=== PATIENT | female | born 1985 | race Caucasian/White ===

== ENCOUNTER 2017-02-14 22:57 | Outpatient (CLI) | payer MEDICAID ==
[2017-02-14 23:24] LABS: APPEARANCE,URINE SLIGHTLY-CLOUDY; BILIRUBIN,URINE NEGATIVE (NEGATIVE); GLUCOSE, URINE NEGATIVE (NEGATIVE); KETONES,URINE NEGATIVE (NEGATIVE); LEUKOCYTE ESTERASE,URINE NEGATIVE (NEGATIVE); NITRITE,URINE NEGATIVE (NEGATIVE); PROTEIN,URINE NEGATIVE (NEGATIVE); URINE SPECIFIC GRAVITY 1.016
[2017-02-14 23:38] LABS: URINE BARBITURATES SCREEN NEGATIVE; URINE METHADONE SCREEN NEGATIVE; URINE OPIATES LOW NEGATIVE; URINE PHENCYCLIDINE SCREEN NEGATIVE
== END 2017-02-15 00:20 | disposition home or self-care (01) ==
LOC: LC 22:57
PROVIDERS: ATTEND Obstetrics & Gynecology
DX: O99.89 Other specified diseases and conditions complicating pregnancy, childbirth and the puerperium (principal); R10.9 Unspecified abdominal pain
CPT/HCPCS: 80307; 81001

== ENCOUNTER 2017-04-01 11:51 | Outpatient (CLI) | payer MEDICAID | END 2017-04-01 12:35 | disposition home or self-care (01) | LOC: LC 11:51 | PROVIDERS: ATTEND Specialist | PROC: 4A1HXCZ Monitoring of Products of Conception, Cardiac Rate, External Approach (ICD-10-PCS; principal; 2017-04-01) | DX: Z34.83 Encounter for supervision of other normal pregnancy, third trimester (principal) | CPT/HCPCS: 59025 ==

== ENCOUNTER 2017-04-09 05:15 | Inpatient (IN) | payer MEDICAID ==
[2017-04-07 10:10] LABS: ABSOLUTE EOSINOPHILS # (AUTO) 0.1 10^3/uL (0.0-0.6); ABSOLUTE LYMPHOCYTES (AUTO) 1.1 10^3/uL (0.5-4.7); ABSOLUTE MONOCYTES (AUTO) 0.5 10^3/uL (0.1-1.4); ABSOLUTE NEUT (AUTO) 6.8 10^3/uL (1.7-8.2); BASOPHILS % (AUTO) 0.4 % (0-2); EOSINOPHILS % (AUTO) 0.8 % (0-6); HEMATOCRIT 38.2 % (36.0-47.0); HEMOGLOBIN 13.3 g/dL (12.0-15.5); HGB HCT DIFFERENCE 1.7; LYMPHOCYTES % (AUTO) 12.4 % (13-45); MEAN CORPUSCULAR HEMOGLOBIN 31.7 pg (27.0-33.4); MEAN CORPUSCULAR HGB CONC 34.9 g/dL (32.0-36.0); MEAN CORPUSCULAR VOLUME 91 fl (80-97); MONOCYTES % (AUTO) 6.1 % (3-13); RED CELL DISTRIBUTION WIDTH 14.5 % (11.5-14.0); SEGMENTED NEUTROPHILS % (AUTO) 80.3 % (42-78); WHITE BLOOD COUNT 8.5 10^3/uL (4.0-10.5)
[2017-04-07 10:11] LABS: APPEARANCE,URINE CLOUDY; BILIRUBIN,URINE NEGATIVE (NEGATIVE); CALCIUM OXALATE CRYSTALS,URINE TOO NUMEROUS TO CNT /HPF; GLUCOSE, URINE NEGATIVE (NEGATIVE); KETONES,URINE NEGATIVE (NEGATIVE); LEUKOCYTE ESTERASE,URINE NEGATIVE (NEGATIVE); NITRITE,URINE NEGATIVE (NEGATIVE); PROTEIN,URINE NEGATIVE (NEGATIVE); URINE SPECIFIC GRAVITY 1.018
[2017-04-07 10:37] LABS: URINE BARBITURATES SCREEN NEGATIVE; URINE METHADONE SCREEN NEGATIVE; URINE OPIATES LOW NEGATIVE; URINE PHENCYCLIDINE SCREEN NEGATIVE
[~2017-04-09 05:15] MED LIST: CEFAZOLIN 2 GM/D5W RTU 2 GM/50 ML RTUPB IV PRN; LACTATED RINGERS 1000 ML IV PRN; RINGERS SOLUTION,LACTATED 1,000 ML IV PRN
[2017-04-09] MEDS ORDERED: OXYTOCIN 10 UNIT/ML VIAL ONE (07:38)
[2017-04-09] MEDS ORDERED: LIDOCAINE 2% INJ-PF (20 MG/ML) 10 ML AMPUL ONE ×3 (07:38→08:13)
[2017-04-09] MEDS ORDERED: FENTANYL CITRATE INJ/PF 100 MCG/2 ML AMPUL ONE (07:39)
[2017-04-09] MEDS ORDERED: MIDAZOLAM 2 MG/2 ML INJ ONE (07:39)
[2017-04-09] MEDS ORDERED: EPHEDRINE SULFATE INJ 50 MG/1 ML AMPULE ONE (07:39)
[2017-04-09] MEDS ORDERED: ONDANSETRON HCL INJ/PF 4 MG/2 ML SDV ONE (07:39)
[2017-04-09] MEDS ORDERED: ACETAMINOPHEN 100 ML IV PRN (08:05)
[2017-04-09] MEDS ORDERED: SIMETHICONE 80 MG TAB.CHEW PO PRN (08:05)
[2017-04-09] MEDS ORDERED: RINGERS SOLUTION,LACTATED 1,000 ML IV PRN (08:05)
[2017-04-09] MEDS ORDERED: ACETAMINOPHEN 325 MG TABLET PO PRN (08:05)
[2017-04-09] MEDS ORDERED: HYDROMORPHONE HCL INJ/PF 2 MG/ML AMPULE IV PRN (08:05)
[2017-04-09] MEDS ORDERED: PROMETHAZINE HCL INJ 25 MG/1 ML VIAL IV PRN ×3 (08:05→08:53)
[2017-04-09] MEDS ORDERED: MEASLES,MUMPS&RUBELLA VACC/PF 0.5 ML VIAL SUBCUT PRN ×2 (08:05→13:00)
[2017-04-09] MEDS ORDERED: OXYTOCIN/NORMAL SALINE 20 UNIT/1,000 ML RTUINJ IV PRN (08:05)
[2017-04-09] MEDS ORDERED: DIPH/PERTUSS(ACELL)/TETANUS VAC/PF 0.5 ML SYR (>=10YO) IM PRN ×2 (08:05→13:00)
[2017-04-09] MEDS ORDERED: OXYCODONE-ACETAMINOPHEN 5-325 MG TABLET PO PRN ×2 (08:05)
[2017-04-09] MEDS ORDERED: FENTANYL CITRATE INJ/PF 100 MCG/2 ML AMPUL IV PRN ×3 (08:53)
[2017-04-09] MEDS ORDERED: MEPERIDINE HCL/PF INJ 25 MG/1 ML DISP.SYRIN IV PRN (08:53)
[2017-04-09] MEDS ORDERED: MORPHINE SULFATE 10 MG/ML INJ IV PRN (08:53)
[2017-04-09] MEDS ORDERED: DIPHENHYDRAMINE HCL 50 MG/ML VIAL IV PRN (08:53)
--- NOTE | 2017-04-09 09:02 | Non Stress Test Report ---
Non Stress Test Datetime Report Generated by CPN: 04/09/2017 09:02 DEMOGRAPHIC EGA NST: 38.2 INDICATION Indication for Study: Ordered by Provider MONITORING Monitor Explained: Monitor Explained; Test Explained; Patient Verbalized Understanding Time on Monitor: 04/01/2017 12:08 Time off Monitor: 04/01/2017 12:28 NST Duration: 20 NST INTERVENTIONS NST Interventions: None Physician Notified NST: Dr. Neilsen BABY A: [id number] BABY A Movement : Present Contraction Frequency : none FHR Baseline : 125 Accelerations : 15X15 Decelerations : None Variability : Moderate 6-25bpm NST Review: Meets Criteria for Reactive NST NST Review and Verified By : Pee Brumfield RN NST Results: Reactive NST REPORT Report Trigger: Send Report
[2017-04-09] MEDS ORDERED: MORPHINE SULFATE 10 MG/ML INJ ONE (09:19)
--- NOTE | 2017-04-09 09:22 | Operative Report ---
Operative Report DATE OF SURGERY: 04/09/17 PREOPERATIVE DIAGNOSIS: Desires repeat to prevent risk from uterine rupture POSTOPERATIVE DIAGNOSIS: Same OPERATION: Repeat via low transverse uterine incision SURGEON: SHIV KRISHNA ANESTHESIA: Epidural TISSUE REMOVED OR ALTERED: Placenta COMPLICATIONS: None ESTIMATED BLOOD LOSS: 250 INTRAOPERATIVE FINDINGS: Viable female Apgars 9 9 PROCEDURE: Patient was taken to the OR and placed in supine position after her spinal anesthesia. She is prepared and draped in sterile fashion. La was placed for drainage of the bladder. Low transverse incision was made and carried down the level of the fascia. The fascial incision was made with knife and extended bilaterally with curved Clayton scissors. The fascia was off the rectus muscles using sharp and blunt dissection. The rectus muscles are in the midline. The peritoneum was entered without incident. Bladder blade was placed in uterine segment was identified. A low transverse incision was made creating a bladder flap. Bladder blade was placed low transverse uterine incision was made with the csafe knife and extended with fingertips. The baby was delivered with some fundal pressure. Mouth and nose were suctioned free. The cord is doubly clamped and cut. Baby is passed off to the blanket washer in attendance. The placenta was manually extracted with trailing membranes. The uterus could not be externalized as it was too large to fit through the incision. Uterine contents wiped free. Uterus was closed with a running locking layer of 0 chromic suture using the second layer to imbricate the first completing a double layer closure of the uterus. The serosa was closed with a running 2-0 chromic stitch. The pelvis was irrigated and suctioned free of fluid the uterus was replaced in the abdomen. The abdominal wall peritoneum was closed with running 2-0 chromic stitch. Fascia was closed with a running 0 Vicryl in 2 segments. Michael's layer was brought together with 0 plain gut stitch and the skin was closed with running subcuticular 4-0 undyed Vicryl stitch. The wound was dressed mother and baby did well.
[2017-04-09] MEDS ORDERED: ACETAMINOPHEN 100 ML IV ONE (09:33)
[2017-04-09] MEDS ORDERED: OXYTOCIN/NORMAL SALINE 20 UNIT/1,000 ML RTUINJ ONE (10:52)
[2017-04-09] MEDS ORDERED: KETOROLAC TROMETHAMINE 60 MG/2 ML SDV ONE (11:26)
[2017-04-09] MEDS: PRENATAL VITAMIN W-O CA NO5/FE FUMARATE/FA CAPSULE PO SCH (16:12)
[2017-04-09] MEDS: KETOROLAC TROMETHAMINE INJ/PF 30 MG/1 ML SDV IV SCH ×2 (16:12→18:12)
[2017-04-09] MEDS: DOCUSATE SODIUM 100 MG CAPSULE PO SCH ×2 (16:12→18:12)
[2017-04-10] MEDS: KETOROLAC TROMETHAMINE INJ/PF 30 MG/1 ML SDV IV SCH (02:34)
[2017-04-10 05:12] LABS: HEMATOCRIT 35.1 % (36.0-47.0); HEMOGLOBIN 12.1 g/dL (12.0-15.5); HGB HCT DIFFERENCE 1.2; MEAN CORPUSCULAR HEMOGLOBIN 31.4 pg (27.0-33.4); MEAN CORPUSCULAR HGB CONC 34.4 g/dL (32.0-36.0); MEAN CORPUSCULAR VOLUME 91 fl (80-97); RED BLOOD COUNT 3.85 10^6/uL (3.72-5.28); RED CELL DISTRIBUTION WIDTH 14.8 % (11.5-14.0); WHITE BLOOD COUNT 12.6 10^3/uL (4.0-10.5)
[2017-04-10] MEDS: IBUPROFEN 800 MG TABLET PO SCH ×4 (06:21→23:16)
[2017-04-10] MEDS ORDERED: INFLUENZA ADLT QUAD (36MOS+) 2017-18 VAC 0.5 ML SYR IM PRN (07:56)
[2017-04-10] MEDS: PRENATAL VITAMIN W-O CA NO5/FE FUMARATE/FA CAPSULE PO SCH (09:19)
[2017-04-10] MEDS: DOCUSATE SODIUM 100 MG CAPSULE PO SCH ×2 (09:19→17:43)
--- NOTE | 2017-04-10 10:14 | PDOC PROGRESS REPORT ---
Subjective-OB Subjective: Post Delivery Day: 1 31 year old. Denies any needs at this time, states lochia is stable, pain is well controlled, voiding without difficulty, passing gas, tolerating diet. Physical Exam (OB) Vital Signs: Temp Pulse Resp BP Pulse Ox 98.0 F 76 18 118/70 98 04/10/17 08:29 04/10/17 08:29 04/10/17 08:29 04/10/17 08:29 04/10/17 04:23 Intake & Output 04/09/17 04/10/17 04/11/17 06:59 06:59 06:59 Intake Total 2575 Output Total 2350 Balance 225 Weight 118.39 kg - PIH/Pre-Eclampsia Clonus: Negative - Dressing Removed: Yes - 924 Incision: Dressing, Well Approximated Closure Type: Sutures - Lochia Lochia Amount: Small 10-25 ml Lochia Color: Rubra/Red - Abdomen Description: Tender, Soft, Round Hernia Present: No Fundal Description: Firm, Midline Fundal Height: u/u - u/2 Objective-Diagnostic Laboratory: 04/10/17 04:53 04/10/17 04:53 WBC 12.6 H RBC 3.85 Hgb 12.1 Hct 35.1 L MCV 91 MCH 31.4 MCHC 34.4 RDW 14.8 H Plt Count 257 Assessment and Plan(PN) - Assessment and Plan (1) Status post repeat low transverse section Is this a current diagnosis for this admission?: Yes Plan: routine post op care - Time Spent with Patient Time with patient: Less than 15 minutes Critical Time spent with patient: Less than 15 minutes Medications reviewed and adjusted accordingly: Yes - Disposition Anticipated Discharge: Home Within: within 24 hours
[2017-04-11] MEDS: IBUPROFEN 800 MG TABLET PO SCH ×2 (05:52→11:12)
--- NOTE | 2017-04-11 09:29 | PDOC DISCHARGE SUMMARY ---
Final Diagnosis Discharge Date: 04/11/17 - Final Diagnosis (1) Status post repeat low transverse section Is this a current diagnosis for this admission?: Yes Discharge Data - Discharge Medication Home Medications: Fluticasone/Salmeterol [Advair 500-50 Diskus 28 Dose] 1 inh IH Q12 04/09/17 Pnv No.95/Ferrous Fum/Folic AC [ Multivitamin Tablet] 1 each PO DAILY Docusate Sodium [Colace 100 mg Capsule] 100 mg PO BID #60 capsule 04/11/17 Ibuprofen [Motrin 800 mg Tablet] 800 mg PO Q6 #60 tablet 04/11/17 Oxycodone HCl/Acetaminophen [Percocet 5-325 mg Tablet] 2 tab PO Q4HP PRN #30 tablet 04/11/17 Gestational Age: 39 Reason(s) for Admission: Ceasarean Section-Repeat Procedures: NST Intrapartum Procedure(s): : Low Cervical, Transverse - Data Baby 1 Female at 1 minute: 9 at 5 minutes: 9 Home with Mother: Yes Complications: No - Diagnosis Test Laboratory: Temp Pulse Resp BP Pulse Ox 97.5 F 76 15 126/69 H 98 04/11/17 08:16 04/11/17 08:16 04/11/17 08:16 04/11/17 08:16 04/11/17 08:16 04/07/17 04/07/17 04/10/17 09:00 09:05 04:53 RBC 4.20 3.85 Hgb 13.3 12.1 Hct 38.2 35.1 L Urine Opiates Screen NEGATIVE - Discharge information/Instructions Discharge Activity: Activity As Tolerated, No Lifting Over 10 Pounds, Pelvic Rest, No tub bath Discharge Diet: Regular Disposition: HOME, SELF-CARE Follow up with: [facility] in: 1, Weeks
[2017-04-11] MEDS: PRENATAL VITAMIN W-O CA NO5/FE FUMARATE/FA CAPSULE PO SCH (09:58)
[2017-04-11] MEDS: DOCUSATE SODIUM 100 MG CAPSULE PO SCH (09:58)
[2017-04-11 11:34] VITALS: BP 133/75
== END 2017-04-11 13:36 | disposition home or self-care (01) | DRG 766 ==
LOC: 2N 05:15
PROVIDERS: ADMIT Obstetrics & Gynecology; ATTEND Obstetrics & Gynecology
PROC: 4A1HXCZ Monitoring of Products of Conception, Cardiac Rate, External Approach (ICD-10-PCS; 2017-04-09)
PROC: 10D00Z1 Extraction of Products of Conception, Low, Open Approach (ICD-10-PCS; principal; 2017-04-09 07:45)
PROC: 3E0234Z Introduction of Serum, Toxoid and Vaccine into Muscle, Percutaneous Approach (ICD-10-PCS; 2017-04-11)
PROC: 3E0234Z Introduction of Serum, Toxoid and Vaccine into Muscle, Percutaneous Approach (ICD-10-PCS; 2017-04-11)
DX: O34.211 Maternal care for low transverse scar from previous cesarean delivery (principal); Z37.0 Single live birth; Z3A.39 39 weeks gestation of pregnancy; Z23 Encounter for immunization
CPT/HCPCS: 1961; 36415; 59025; 80307; 81001; 85025; 85027; 86850; 86900; 86901; 90686; 90707; 94799; J0131; J1885; J2250; J2270; J2405; J2590; J3010; J3490; J7120

== ENCOUNTER 2017-06-07 18:33 | Emergency (ER) | payer MEDICAID ==
[2017-06-07] MEDS ORDERED: KETOROLAC TROMETHAMINE INJ/PF 30 MG/1 ML SDV IV ONE (20:36)
[2017-06-07] MEDS ORDERED: PROCHLORPERAZINE EDISYLATE INJ 10 MG/2 ML VIAL IV ONE (20:36)
[2017-06-07] MEDS ORDERED: DIPHENHYDRAMINE HCL 50 MG/ML VIAL IV ONE (20:36)
[2017-06-07] MEDS ORDERED: NORMAL SALINE 1000 ML 1,000 ML IV ONE (20:36)
--- NOTE | 2017-06-07 20:55 | ER Document Report ---
ED Flu Like - General Chief Complaint: Flu Symptoms Stated Complaint: HEAD/NECK PAIN, NAUSEA, FEVER Time Seen by Provider: 06/07/17 20:10 Mode of Arrival: Ambulatory Information source: Patient Notes: 31-year-old female presents to ED for complaint of headache fever body aches chills sinus congestion since yesterday. She states her temperature was 100-4 day and she took 1000 mg of Tylenol patient was temperature was 99.8 in the emergency room. She states she does not remember what time she took the Tylenol. Patient has a history of asthma. He states he had a baby and early April and had vaginal bleeding for about 4 weeks. TRAVEL OUTSIDE OF THE [place] IN LAST 30 DAYS: No - HPI Onset: Yesterday Timing/Duration: Intermittent Quality of pain: Achy, Throbbing Severity: Severe Pain Level: 5 Associated symptoms: Body/muscle aches, Chills, Nonproductive cough, Fever, Headache, Rhinnorhea, Sinus pain/drainage Similar symptoms previously: No Recently seen / treated by doctor: Yes - Related Data Allergies/Adverse Reactions: hydrocodone [From Vicodin] Allergy (Verified 06/03/16 01:12) Past Medical History - General Information source: Patient - Social History Smoking Status: Never Smoker Cigarette use (# per day): No Chew tobacco use (# tins/day): No Smoking Education Provided: No Frequency of alcohol use: None Drug Abuse: None Occupation: None Lives with: Family Family History: Arthritis, DM, Hyperlipidemia, Hypertension, Malignancy, Other - Asthma, atrial fibrillation, tobacco use, cervical cancer. denies: CAD, COPD , CVA, Thyroid Disfunction Patient has suicidal ideation: No Patient has homicidal ideation: No - Past Medical History Cardiac Medical History: Reports: None Pulmonary Medical History: Reports: Hx Asthma EENT Medical History: Reports: None Neurological Medical History: Reports: Hx Migraine Endocrine Medical History: Reports: None Renal/ Medical History: Reports: None Malignancy Medical History: Reports: None GI Medical History: Reports: Hx Gastroesophageal Reflux Disease Musculoskeltal Medical History: Reports None Skin Medical History: Reports None Psychiatric Medical History: Reports: None Traumatic Medical History: Reports: None Infectious Medical History: Reports: None Past Surgical History: Reports: Hx Section - 3, Hx Cholecystectomy - Immunizations Hx Diphtheria, Pertussis, Tetanus Vaccination: Yes Review of Systems - Review of Systems Constitutional: Chills, Fever, Recent illness EENT: Nose discharge, Sinus discharge Cardiovascular: No symptoms reported Respiratory: No symptoms reported Gastrointestinal: Nausea Genitourinary: No symptoms reported Female Genitourinary: No symptoms reported Musculoskeletal: No symptoms reported Skin: No symptoms reported Hematologic/Lymphatic: No symptoms reported Neurological/Psychological: Headaches -: Yes All other systems reviewed and negative Physical Exam - Vital signs Vitals: Temp Pulse Resp BP Pulse Ox 98.7 F 80 20 149/84 H 98 06/07/17 19:11 06/07/17 19:11 06/07/17 19:11 06/07/17 19:11 06/07/17 19:11 Interpretation: Normal - General General appearance: Appears well, Alert - HEENT Head: Normocephalic, Atraumatic Eyes: Normal Pupils: PERRL Ears: Normal External canal: Normal Tympanic membrane: Normal Sinus: Normal Nasal: Purulent discharge, Swelling Mouth/Lips: Normal Mucous membranes: Normal Pharynx: Post nasal drainage Neck: Anterior cervical chain - Respiratory Respiratory status: No respiratory distress Chest status: Nontender Breath sounds: Normal Chest palpation: Normal - Cardiovascular Rhythm: Regular Heart sounds: Normal auscultation Murmur: No - Abdominal Inspection: Normal Distension: No distension Bowel sounds: Normal Tenderness: Nontender Organomegaly: No organomegaly - Back Back: Normal, Nontender - Extremities General upper extremity: Normal inspection, Nontender, Normal color, Normal ROM , Normal temperature General lower extremity: Normal inspection, Nontender, Normal color, Normal ROM , Normal temperature, Normal weight bearing. No: Johnathan's sign - Neurological Neuro grossly intact: Yes Cognition: Normal Orientation: AAOx4 Jason Coma Scale Eye Opening: Spontaneous Jason Coma Scale Verbal: Oriented Jason Coma Scale Motor: Obeys Commands Jason Coma Scale Total: 15 Speech: Normal Motor strength normal: LUE, RUE, LLE, RLE Sensory: Normal - Psychological Associated symptoms: Normal affect, Normal mood - Skin Skin Temperature: Warm Skin Moisture: Dry Skin Color: Normal Course - Re-evaluation Re-evalutation: 06/08/17 02:12 Patient's assessment consistent with an upper respiratory infection with a migraine headache. Pupils equal and react to light, speak in full sentences, alert oriented, and walks with a steady gait. Patient treated with Toradol Compazine and IV fluids for her migraine. Patient instructed to follow-up with her primary doctor. - Vital Signs Vital signs: Temp Pulse Resp BP Pulse Ox 97.5 F 73 17 119/79 98 06/07/17 23:13 06/07/17 23:13 06/07/17 23:13 06/07/17 23:13 06/07/17 23:13 Discharge - Discharge Clinical Impression: URI (upper respiratory infection) Qualifiers: URI type: unspecified URI Qualified Code(s): J06.9 - Acute upper respiratory infection, unspecified Migraine Qualifiers: Migraine type: unspecified Status migrainosus presence: without status migrainosus Intractability: not intractable Qualified Code(s): G43.909 - Migraine, unspecified, not intractable, without status migrainosus Condition: Stable Disposition: HOME, SELF-CARE Instructions: Family Physicians / Practices Additional Instructions: UPPER RESPIRATORY ILLNESS: You have a viral infection of the respiratory passages -- a "cold." This common infection causes nasal congestion, drainage, and often sore throat and cough. It is highly contagious. The disease usually lasts about 10 to 14 days. There is no "cure" for the viral infection -- it must run its course. If there is a complication, such as bacterial infection in the nose, sinuses, middle ear, or bronchial tubes, antibiotics may be required. The antibiotics won't affect the virus. Drink plenty of fluids. A humidifier may help. An expectorant medication or decongestant may make you more comfortable. Use acetaminophen or ibuprofen for fever or aches. See the doctor if fever persists over two days, if there is any significant worsening of your symptoms, or if you simply fail to improve as expected. HEADACHE: The physician does not feel that the headache you are experiencing has a serious underlying cause. Most headaches are due to emotional stress, with resultant muscle tension (tension headache). Occasionally, headaches are secondary to changes in the blood vessels of the scalp (vascular headache and migraine headache). Sometimes, a headache is the first symptom of another developing illness, such as a viral infection. You have no evidence of stroke, bleeding, meningitis, or other serious cause of your headache. The treatment of headaches varies with the severity and cause of the pain. Not all headaches need pain shots. In fact, there is evidence that using narcotics for headaches may make them worse in the long run. The physician will determine the therapy that's in your best interest. If you develop a fever, if the headache is different from any you've previously experienced, or if the headache progressively worsens, then call your physician at once or go to the emergency room. USE OF DIPHENHYDRAMINE: Diphenhydramine (Benadryl) is an antihistamine and has been recommended to help treat your headache and to prevent side effects of other medications used to treat headaches. The medication can be repeated four times daily. Age Elixir (12.5 mg/tsp) 25 mg pill adult 1-2 tabs Antihistamines may cause drowsiness, especially with the first dose. Do not operate machinery or drive while under the effects of the medication. Do not combine the medication with alcohol, or with any other medication without talking to your doctor. INTRAVENOUS COMPAZINE FOR HEADACHE: You have received therapy for headaches, using intravenous Compazine. This treatment is dramatically successful in relieving the headache in about 50 percent of cases. When it works, it provides a rapid method of eliminating the headache without resorting to narcotics (and the problems associated with them). Most patients still feel fully alert after the Compazine, but others may be slightly drowsy. It's best not to drive or work with machinery for six to eight hours. Do not take alcohol or other medication unless you discuss it with the doctor. If you develop tightness and spasms in your muscles, especially the neck and tongue, you should return. This is a side effect which can be treated. Intravenous (IV) Fluids As part of your care today, you received intravenous (IV) fluids. IV fluids are administered to patients who are dehydrated or to those who have certain chemical (electrolyte) abnormalities that need correcting. TORADOL INJECTION: You have been given an injection of ketorolac tromethamine (Toradol). This is an excellent, safe drug for pain control. It also has potent antiinflammatory action. You should have significant pain relief within about one hour. Toradol is not addicting and is non-sedating. It does not interfere with driving or work. Call or return if you develop itching, hives, shortness of breath, or rash. DECONGESTANT MEDICATION: A decongestant medicine has been prescribed. Often this medicine is combined in the same tablet with an antihistamine or expectorant. This type of medicine is helpful in treating a bad cold or sinus condition, as well as in treatment of the nasal congestion of hay fever. It is not of much benefit for lung infections. Decongestant medicines are related to stimulants. They can cause an increase in blood pressure and heart rate. Persons with heart disease and high blood pressure should not take decongestants without discussing this with the physician. If you develop palpitations, chest pain, headache, or tremors, stop the medicine and consult your physician. COUGH-SUPPRESSANT & EXPECTORANT MEDICATION: You are to use a cough medication as needed for relief of symptoms. This medicine is a combination of an expectorant (to make the mucous thinner and more easily "coughed up") and a cough suppressant (to reduce the frequency of coughing). The cough-suppressant medicine is related to narcotics. You may experience mild nausea and sleepiness. Some patients who are very sensitive to narcotics may have stomach pain from this medicine. Taking the medicine with food reduces these side effects. Do not drive or work with machinery until you know how this medicine affects you. The expectorant should have no side effects. Iodine-containing expectorants (such as organidin) should not be taken by persons with active thyroid disease unless approved by your doctor. Call the doctor if you develop shortness of breath, hives, rash, itching, lightheadedness, or severe nausea and vomiting. USE OF ACETAMINOPHEN (Tylenol): Acetaminophen may be taken for pain relief or fever control. It's much safer than aspirin, offering a wider range of "safe" dosages. It is safe during . Some brand names are Tylenol, Panadol, Datril, Anacin 3, Tempra, and Liquiprin. Acetaminophen can be repeated every four hours. The following are maximum recommended dosages: >89 pounds or adults 650 mg to 900 mg Acetaminophen can be repeated every four hours. Maximum dose not to exceed 4000 mg a day. FOLLOW-UP CARE: If you have been referred to a physician for follow-up care, call the physician s office for an appointment as you were instructed or within the next two days. If you experience worsening or a significant change in your symptoms, notify the physician immediately or return to the Emergency Department at any time for re-evaluation. Forms: Elevated Blood Pressure
[2017-06-07 23:15] VITALS: BP 119/79
== END 2017-06-07 23:27 | disposition home or self-care (01) ==
LOC: ER 18:33
DX: J06.9 Acute upper respiratory infection, unspecified (principal); G43.909 Migraine, unspecified, not intractable, without status migrainosus; M54.2 Cervicalgia; R11.0 Nausea; R50.9 Fever, unspecified; Z90.49 Acquired absence of other specified parts of digestive tract; Z88.6 Allergy status to analgesic agent
CPT/HCPCS: 99283; 96361; 96374; 96375; 87804; J1200; J1885; J0780; J7030

== ENCOUNTER 2017-07-31 19:45 | Emergency (ER) | payer MEDICAID ==
[2017-07-31 20:27] VITALS: BP 136/82
--- NOTE | 2017-08-02 11:58 | EKG REPORT ---
SEVERITY:- NORMAL ECG - SINUS RHYTHM : Confirmed by: Devi Oropeza MD 02-Aug-2017 11:57:47
== END 2017-07-31 21:17 | disposition left against medical advice (07) ==
LOC: ER 19:45
DX: Z53.21 Procedure and treatment not carried out due to patient leaving prior to being seen by health care provider (principal); R07.9 Chest pain, unspecified
CPT/HCPCS: 93005; 93010

== ENCOUNTER 2017-08-10 21:08 | Emergency (ER) | payer MEDICAID ==
[2017-08-11] MEDS ORDERED: ASPIRIN 81 MG TABLET, CHEWABLE PO ONE (00:09)
--- NOTE | 2017-08-11 00:11 | ER Document Report ---
ED Medical Screen (RME) - General Chief Complaint: Chest Pain Stated Complaint: CHEST PAIN Time Seen by Provider: 08/11/17 00:08 Mode of Arrival: Ambulatory Information source: Patient Notes: 31-year-old female presents to ED for chest pain off and on for the last week. She states it goes across her upper chest and through the liver back. She states it was worse tonight. She denies any fevers nausea vomiting or diarrhea. She states her last menstrual period was July 20, 2017. She has a 4-month-old daughter. She has a history of GERD but states this is not what this is not does not feel the same. She denies any history of high blood pressure cholesterol or any kind of heart problems. States her father had A. fib and cancer but did not have any coronary artery disease. Lungs are clear to hospital patient respirations are regular unlabored O2 sats 97% with rest perforations of 18. I have greeted and performed a rapid initial assessment of this patient. A comprehensive ED assessment and evaluation of the patient, analysis of test results and completion of medical decision making process will be conducted by an additional ED providers. TRAVEL OUTSIDE OF THE [place] IN LAST 30 DAYS: No - Related Data Allergies/Adverse Reactions: hydrocodone [From Vicodin] Allergy (Verified 06/03/16 01:12) Past Medical History - Social History Family history: Reviewed & Not Pertinent Pulmonary Medical History: Reports: Hx Asthma Neurological Medical History: Reports: Hx Migraine Renal/ Medical History: Denies: Hx Peritoneal Dialysis GI Medical History: Reports: Hx Gastroesophageal Reflux Disease Past Surgical History: Reports: Hx Section - 3, Hx Cholecystectomy - Immunizations Hx Diphtheria, Pertussis, Tetanus Vaccination: Yes
[2017-08-11 00:58] LABS: ABSOLUTE LYMPHOCYTES (AUTO) 1.5 10^3/uL (0.5-4.7); ABSOLUTE MONOCYTES (AUTO) 0.6 10^3/uL (0.1-1.4); ABSOLUTE NEUT (AUTO) 11.8 10^3/uL (1.7-8.2); BASOPHILS % (AUTO) 0.3 % (0-2); EOSINOPHILS % (AUTO) 0.2 % (0-6); HEMATOCRIT 39.7 % (36.0-47.0); HEMOGLOBIN 13.7 g/dL (12.0-15.5); LYMPHOCYTES % (AUTO) 10.9 % (13-45); MEAN CORPUSCULAR HEMOGLOBIN 30.6 pg (27.0-33.4); MEAN CORPUSCULAR HGB CONC 34.4 g/dL (32.0-36.0); MEAN CORPUSCULAR VOLUME 89 fl (80-97); MONOCYTES % (AUTO) 4.5 % (3-13); PLATELET COUNT 307 10^3/uL (150-450); RED BLOOD COUNT 4.47 10^6/uL (3.72-5.28); RED CELL DISTRIBUTION WIDTH 13.1 % (11.5-14.0); SEGMENTED NEUTROPHILS % (AUTO) 84.1 % (42-78); TOTAL CELLS COUNTED % (AUTO) 100 %
[2017-08-11 01:25] VITALS: BP 110/69
[2017-08-11 01:39] LABS: ALANINE AMINOTRANSFERASE 60 U/L (9-52); ALBUMIN 4.6 g/dL (3.5-5.0); ALKALINE PHOSPHATASE 90 U/L (38-126); ANION GAP 13 (5-19); ASPARTATE AMINO TRANSFERASE 35 U/L (14-36); BILIRUBIN,DIRECT 0.1 mg/dL (0.0-0.4); BILIRUBIN,TOTAL 0.6 mg/dL (0.2-1.3); BLOOD UREA NITROGEN 19 mg/dL (7-20); CARBON DIOXIDE 25 mmol/L (22-30); CHLORIDE 103 mmol/L (98-107); CREATINE KINASE 439 U/L (30-135); GLUCOSE 91 mg/dL (75-110); POTASSIUM 3.3 mmol/L (3.6-5.0); SODIUM 141.3 mmol/L (137-145); TOTAL PROTEIN 7.2 g/dL (6.3-8.2)
[2017-08-11 01:56] LABS: CREATINE KINASE MB 0.65 ng/mL (<4.55); TROPONIN I 0.016 ng/mL
== END 2017-08-11 01:55 | disposition left against medical advice (07) ==
LOC: ER 21:08
DX: Z53.21 Procedure and treatment not carried out due to patient leaving prior to being seen by health care provider (principal); R07.9 Chest pain, unspecified
CPT/HCPCS: 36415; 80053; 82550; 82553; 84484; 84703; 85025; 85379; 99281

== ENCOUNTER 2017-08-11 11:23 | Emergency (ER) | payer SELFPAY ==
[2017-08-11 11:41] VITALS: BP 121/76
--- NOTE | 2017-08-11 12:12 | ER Document Report ---
ED Medical Screen (RME) - General Chief Complaint: Chest Pain Stated Complaint: CHEST PAIN, BACK PAIN Time Seen by Provider: 08/11/17 11:56 Notes: 31-year-old female complaining of right-sided chest pain onset yesterday radiates across her chest into her back. Does not take any hormones or hormonal contraceptive, to risk factors for PE or smoking and recent trip to [place]. Had a 4 months ago. No history of DVT, PE or heart attack. TRAVEL OUTSIDE OF THE [place] IN LAST 30 DAYS: No - Related Data Allergies/Adverse Reactions: hydrocodone [From Vicodin] Allergy (Verified 08/11/17 11:24) Past Medical History - General Information source: Patient - Social History Chew tobacco use (# tins/day): No Frequency of alcohol use: None Drug Abuse: None Family history: Reviewed & Not Pertinent Pulmonary Medical History: Reports: Hx Asthma Neurological Medical History: Reports: Hx Migraine Renal/ Medical History: Denies: Hx Peritoneal Dialysis GI Medical History: Reports: Hx Gastroesophageal Reflux Disease Past Surgical History: Reports: Hx Section - 3, Hx Cholecystectomy - Immunizations Hx Diphtheria, Pertussis, Tetanus Vaccination: Yes Review of Systems - Review of Systems Cardiovascular: See HPI Physical Exam - Vital signs Vitals: Temp Pulse Resp BP Pulse Ox 98.1 F 70 16 121/76 99 08/11/17 11:38 08/11/17 11:38 08/11/17 11:38 08/11/17 11:38 08/11/17 11:38 - Notes Notes: Overweight, no acute distress, regular rate and rhythm, no murmurs gallops or rubs, lungs are clear to auscultation bilaterally, no respiratory distress. Course - Vital Signs Vital signs: Temp Pulse Resp BP Pulse Ox 98.1 F 70 16 121/76 99 08/11/17 11:38 08/11/17 11:38 08/11/17 11:38 08/11/17 11:38 08/11/17 11:38
[2017-08-11 12:17] LABS: ABSOLUTE BASOPHILS # (AUTO) 0.1 10^3/uL (0.0-0.2); ABSOLUTE EOSINOPHILS # (AUTO) 0.1 10^3/uL (0.0-0.6); ABSOLUTE LYMPHOCYTES (AUTO) 1.3 10^3/uL (0.5-4.7); ABSOLUTE MONOCYTES (AUTO) 0.5 10^3/uL (0.1-1.4); ABSOLUTE NEUT (AUTO) 5.3 10^3/uL (1.7-8.2); BASOPHILS % (AUTO) 0.7 % (0-2); EOSINOPHILS % (AUTO) 1.4 % (0-6); HEMATOCRIT 38.9 % (36.0-47.0); HEMOGLOBIN 13.3 g/dL (12.0-15.5); LYMPHOCYTES % (AUTO) 17.8 % (13-45); MEAN CORPUSCULAR HEMOGLOBIN 30.6 pg (27.0-33.4); MEAN CORPUSCULAR HGB CONC 34.2 g/dL (32.0-36.0); MEAN CORPUSCULAR VOLUME 89 fl (80-97); MONOCYTES % (AUTO) 7.5 % (3-13); PLATELET COUNT 275 10^3/uL (150-450); RED BLOOD COUNT 4.35 10^6/uL (3.72-5.28); RED CELL DISTRIBUTION WIDTH 13.4 % (11.5-14.0); SEGMENTED NEUTROPHILS % (AUTO) 72.6 % (42-78); TOTAL CELLS COUNTED % (AUTO) 100 %; WHITE BLOOD COUNT 7.3 10^3/uL (4.0-10.5)
[2017-08-11 12:28] LABS: ALANINE AMINOTRANSFERASE 49 U/L (9-52); ALBUMIN 4.2 g/dL (3.5-5.0); ALKALINE PHOSPHATASE 77 U/L (38-126); ANION GAP 12 (5-19); ASPARTATE AMINO TRANSFERASE 33 U/L (14-36); BILIRUBIN,DIRECT 0.4 mg/dL (0.0-0.4); BILIRUBIN,TOTAL 0.8 mg/dL (0.2-1.3); BLOOD UREA NITROGEN 19 mg/dL (7-20); CALCIUM 9.7 mg/dL (8.4-10.2); CARBON DIOXIDE 25 mmol/L (22-30); CHLORIDE 104 mmol/L (98-107); CREATINE KINASE 320 U/L (30-135); GLUCOSE 82 mg/dL (75-110); LIPASE 69.9 U/L (23-300); POTASSIUM 3.7 mmol/L (3.6-5.0); SODIUM 141.1 mmol/L (137-145); TOTAL PROTEIN 7.1 g/dL (6.3-8.2)
[2017-08-11 12:39] LABS: CREATINE KINASE MB 0.66 ng/mL (<4.55)
--- NOTE | 2017-08-11 12:39 | RADIOLOGY REPORT (SQ) ---
EXAM DESCRIPTION: CHEST PA/LAT COMPLETED DATE/TIME: 08/11/2017 12:32 pm REASON FOR STUDY: CP, shortness of breath COMPARISON: None. NUMBER OF VIEWS: Two view. TECHNIQUE: Frontal and lateral radiographic views of the chest acquired. LIMITATIONS: None. FINDINGS: LUNGS AND PLEURA: No opacities, masses or pneumothorax. No pleural effusion. MEDIASTINUM AND HILAR STRUCTURES: No masses or contour abnormalities. HEART AND VASCULATURE: Heart normal size. No evidence for failure. BONY STRUCTURES: No acute findings. HARDWARE: None. OTHER: No other significant finding. IMPRESSION: NO SIGNIFICANT RADIOGRAPHIC FINDING IN THE CHEST. TECHNICAL DOCUMENTATION: JOB ID: [id number] [employer]- All Rights Reserved
[2017-08-11 12:42] LABS: TROPONIN I < 0.012 ng/mL
[2017-08-11 13:00] LABS: APPEARANCE,URINE SLIGHTLY-CLOUDY; BILIRUBIN,URINE NEGATIVE (NEGATIVE); COLOR,URINE YELLOW; GLUCOSE, URINE NEGATIVE (NEGATIVE); KETONES,URINE NEGATIVE (NEGATIVE); LEUKOCYTE ESTERASE,URINE NEGATIVE (NEGATIVE); NITRITE,URINE NEGATIVE (NEGATIVE); PROTEIN,URINE NEGATIVE (NEGATIVE); URINE SPECIFIC GRAVITY 1.014; UROBILINOGEN,URINE NEGATIVE mg/dL (<2.0)
[2017-08-11] MEDS ORDERED: KETOROLAC TROMETHAMINE INJ/PF 30 MG/1 ML SDV IV ONE (13:58)
--- NOTE | 2017-08-11 14:03 | ER Document Report ---
ED General - General Chief Complaint: Chest Pain Stated Complaint: CHEST PAIN, BACK PAIN Time Seen by Provider: 08/11/17 11:56 TRAVEL OUTSIDE OF THE [place] IN LAST 30 DAYS: No - HPI Patient complains to provider of: Chest pain Notes: Patient coming in for onset of chest pain going from the right side of the chest left-sided chest. Patient denies any fevers chills nausea vomiting diarrhea. Denies any trauma to the area. Patient resting comfortably upon my evaluation. Patient was seen in ER last night however he looked prior to getting her results. Patient seen in triage and other chest pain cursive the d- dimer was ordered. Upon my evaluation patient does not look to be any obvious distress. Denies any past medical history. Denies any recent travel. Denies shortness of breath. States pain right sided goes across the left side increased with palpation and deep breathing. - Related Data Allergies/Adverse Reactions: hydrocodone [From Vicodin] Allergy (Verified 08/11/17 11:24) Past Medical History - General Information source: Patient - Social History Smoking Status: Never Smoker Chew tobacco use (# tins/day): No Frequency of alcohol use: None Drug Abuse: None Family History: Arthritis, DM, Hyperlipidemia, Hypertension, Malignancy, Other - Asthma, atrial fibrillation, tobacco use, cervical cancer. denies: CAD, COPD , CVA, Thyroid Disfunction Patient has suicidal ideation: No Patient has homicidal ideation: No Pulmonary Medical History: Reports: Hx Asthma Neurological Medical History: Reports: Hx Migraine Renal/ Medical History: Denies: Hx Peritoneal Dialysis GI Medical History: Reports: Hx Gastroesophageal Reflux Disease Past Surgical History: Reports: Hx Section - 3, Hx Cholecystectomy - Immunizations Hx Diphtheria, Pertussis, Tetanus Vaccination: Yes Review of Systems - Review of Systems Constitutional: No symptoms reported EENT: No symptoms reported Cardiovascular: Chest pain Respiratory: No symptoms reported Gastrointestinal: No symptoms reported Genitourinary: No symptoms reported Female Genitourinary: No symptoms reported Musculoskeletal: No symptoms reported Skin: No symptoms reported Hematologic/Lymphatic: No symptoms reported Neurological/Psychological: No symptoms reported -: Yes All other systems reviewed and negative Physical Exam - Vital signs Vitals: Temp Pulse Resp BP Pulse Ox 98.1 F 70 16 121/76 99 08/11/17 11:38 08/11/17 11:38 08/11/17 11:38 08/11/17 11:38 08/11/17 11:38 Interpretation: Normal - General General appearance: Appears well, Alert - HEENT Head: Normocephalic, Atraumatic Eyes: Normal Pupils: PERRL - Respiratory Respiratory status: No respiratory distress Chest status: Tender - Tenderness palpation of the right side of the chest and left-sided chest reproduces patient's pain Breath sounds: Normal Chest palpation: Normal - Cardiovascular Rhythm: Regular Heart sounds: Normal auscultation Murmur: No - Abdominal Inspection: Normal Distension: No distension Bowel sounds: Normal Tenderness: Nontender Organomegaly: No organomegaly - Back Back: Normal, Nontender - Extremities General upper extremity: Normal inspection, Nontender, Normal color, Normal ROM , Normal temperature General lower extremity: Normal inspection, Nontender, Normal color, Normal ROM , Normal temperature, Normal weight bearing. No: Johnathan's sign - Neurological Neuro grossly intact: Yes Cognition: Normal Orientation: AAOx4 Placedo Coma Scale Eye Opening: Spontaneous Placedo Coma Scale Verbal: Oriented Placedo Coma Scale Motor: Obeys Commands Jason Coma Scale Total: 15 Speech: Normal Motor strength normal: LUE, RUE, LLE, RLE Sensory: Normal - Psychological Associated symptoms: Normal affect, Normal mood - Skin Skin Temperature: Warm Skin Moisture: Dry Skin Color: Normal Course - Re-evaluation Re-evalutation: 08/11/17 14:27 The patient has atypical chest pain as the patient's chest pain is not suggestive of pulmonary embolus, cardiac ischemia, aortic dissection, or other serious etiology. Given the extremely low risk of these diagnoses further testing and evaluation for these possibilities does not appear to be indicated at this time. The patient has been instructed to return if the symptoms worsen or change in any way. Previous today's laboratory studies were reviewed. Troponin d-dimer negative both instances. Patient will be discharged home consistent with chest wall pain and costochondritis. - Vital Signs Vital signs: Temp Pulse Resp BP Pulse Ox 97.7 F 70 16 121/76 99 08/11/17 14:13 08/11/17 11:38 08/11/17 11:38 08/11/17 11:38 08/11/17 11:38 - Laboratory Result Diagrams: 08/11/17 10:59 08/11/17 10:59 Laboratory results interpreted by me: 08/11/17 10:59 Est GFR (Non-Af Amer) 58 L Creatine Kinase 320 H Discharge - Discharge Clinical Impression: Chest wall pain Condition: Good Disposition: HOME, SELF-CARE Instructions: Chest Wall Pain ([facility]), Chest Pain of Unclear Cause ([facility]) Additional Instructions: Your laboratory studies from last night and today did not show any signs of cardiac ischemia nor signs of any blood clot formation. I do believe her pain is due to inflammation of the chest wall musculature or cartilage cough costochondritis. Treatment is anti-inflammatory medication such as Motrin or Naprosyn. Please take medication as prescribed return to ER symptoms worsen he may also take Tylenol for pain control. Prescriptions: Ibuprofen [Motrin 800 mg Tablet] 800 mg PO Q8H PRN #30 tab PRN Reason: Forms: Return to Work
--- NOTE | 2017-08-11 22:48 | EKG REPORT ---
SEVERITY:- NORMAL ECG - SINUS RHYTHM : Confirmed by: Mariano Singh 11-Aug-2017 22:47:40
== END 2017-08-11 14:29 | disposition home or self-care (01) ==
LOC: ER 11:23
DX: R07.89 Other chest pain (principal); J45.909 Unspecified asthma, uncomplicated; Z88.5 Allergy status to narcotic agent
CPT/HCPCS: 93005; 99285; 96372; 36415; 82553; 82550; 83690; 84703; 85025; 80053; 81001; 84484; 85379; 71046; 93010; J1885

== ENCOUNTER 2017-10-25 16:41 | Emergency (ER) | payer MEDICAID ==
[2017-10-25 16:54] VITALS: BP 125/68
[2017-10-25] MEDS ORDERED: ACETAMINOPHEN 325 MG TABLET PO ONE (17:40)
--- NOTE | 2017-10-25 17:46 | ER Document Report ---
ED Medical Screen (RME) - General Chief Complaint: Abdominal Pain Stated Complaint: ABDOMINAL PAIN Time Seen by Provider: 10/25/17 17:35 Notes: RME DISCLOSURE I have seen this patient as part of a Rapid Medical Evaluation and, if applicable, placed any initially appropriate orders. The patient will be seen and fully evaluated, including a full history and physical exam, by a provider ( in Main ED or Fast Track) when a room becomes available. 31-year-old female here with complaints of bilateral abdominal pain ongoing for the past few hours. The pain is intermittent. Pain lasts for a few minutes before complete resolution. She has some nausea but she has had this throughout the entire and is unchanged from baseline. No vomiting diarrhea dysuria hematuria or vaginal bleeding/discharge. She reports that she had the same bilateral abdominal pain in her last "every once in a while". She reports that her first ultrasound was performed approximately 5 weeks ago and she reports that it was "normal". She [facility] [place]. TRAVEL OUTSIDE OF THE [place]. IN LAST 30 DAYS: No - Related Data Allergies/Adverse Reactions: hydrocodone [From Vicodin] Allergy (Verified 10/25/17 16:42) Past Medical History - Social History Chew tobacco use (# tins/day): No Frequency of alcohol use: None Drug Abuse: None Family history: Reviewed & Not Pertinent Pulmonary Medical History: Reports: Hx Asthma Neurological Medical History: Reports: Hx Migraine Renal/ Medical History: Denies: Hx Peritoneal Dialysis GI Medical History: Reports: Hx Gastroesophageal Reflux Disease Past Surgical History: Reports: Hx Section - 3, Hx Cholecystectomy - Immunizations Hx Diphtheria, Pertussis, Tetanus Vaccination: Yes Physical Exam - Vital signs Vitals: Temp Pulse Resp BP Pulse Ox 98.1 F 78 18 125/68 99 10/25/17 16:52 10/25/17 16:52 10/25/17 16:52 10/25/17 16:52 10/25/17 16:52 Course - Vital Signs Vital signs: Temp Pulse Resp BP Pulse Ox 98.1 F 78 18 125/68 99 10/25/17 16:52 10/25/17 16:52 10/25/17 16:52 10/25/17 16:52 10/25/17 16:52
[2017-10-25 18:27] LABS: APPEARANCE,URINE CLOUDY; BILIRUBIN,URINE NEGATIVE (NEGATIVE); COLOR,URINE YELLOW; GLUCOSE, URINE NEGATIVE (NEGATIVE); KETONES,URINE NEGATIVE (NEGATIVE); LEUKOCYTE ESTERASE,URINE MODERATE (NEGATIVE); NITRITE,URINE NEGATIVE (NEGATIVE); PROTEIN,URINE NEGATIVE (NEGATIVE); URINE SPECIFIC GRAVITY 1.019
--- NOTE | 2017-10-25 19:23 | ER Document Report ---
ED GI/ - General Mode of Arrival: Ambulatory Information source: Patient TRAVEL OUTSIDE OF THE [place] IN LAST 30 DAYS: No - General Chief Complaint: Abdominal Pain Stated Complaint: ABDOMINAL PAIN Time Seen by Provider: 10/25/17 17:35 Notes: Patient is a 31 year old female that presents to the emergency department today with complaints of lower abdominal cramping. Patient is , stating her last menstrual period was in July. Patient states the lower abdominal cramping comes and goes. Patient denies any vaginal discharge, vaginal bleeding , fevers, or chills. (LESLYE DOBBINS) - Related Data Allergies/Adverse Reactions: hydrocodone [From Vicodin] Allergy (Verified 10/25/17 16:42) Past Medical History - General Information source: Patient - Social History Smoking Status: Never Smoker Cigarette use (# per day): No Chew tobacco use (# tins/day): No Frequency of alcohol use: None Drug Abuse: None Family History: Arthritis, DM, Hyperlipidemia, Hypertension, Malignancy, Other - Asthma, atrial fibrillation, tobacco use, cervical cancer Patient has suicidal ideation: No Patient has homicidal ideation: No Pulmonary Medical History: Reports: Hx Asthma Neurological Medical History: Reports: Hx Migraine GI Medical History: Reports: Hx Gastroesophageal Reflux Disease Past Surgical History: Reports: Hx Section - 3, Hx Cholecystectomy - Immunizations Hx Diphtheria, Pertussis, Tetanus Vaccination: Yes Review of Systems - Review of Systems Constitutional: denies: Chills, Fever EENT: No symptoms reported Cardiovascular: No symptoms reported Respiratory: No symptoms reported Gastrointestinal: See HPI, Abdominal pain Genitourinary: No symptoms reported Female Genitourinary: See HPI, Last menstrual period - july, . denies: Vaginal discharge, Vaginal bleeding Musculoskeletal: No symptoms reported Skin: No symptoms reported Hematologic/Lymphatic: No symptoms reported Neurological/Psychological: No symptoms reported -: Yes All other systems reviewed and negative Physical Exam - Vital signs Vitals: Temp Pulse Resp BP Pulse Ox 98.1 F 78 18 125/68 99 10/25/17 16:52 10/25/17 16:52 10/25/17 16:52 10/25/17 16:52 10/25/17 16:52 - Notes Notes: Physical Exam: General: Alert, appears well. HEENT: Normocephalic. Atraumatic. PERRL. Extraocular movements intact. Oropharynx clear. Neck: Supple. Non-tender. Respiratory: No respiratory distress. Clear and equal breath sounds bilaterally. Cardiovascular: Regular rate and rhythm. Abdominal: Normal Inspection. Non-tender. No distension. Normal Bowel Sounds. Back: Non-tender. No deformity or step off. Extremities: Moves all four extremities. Upper extremities: Normal inspection. Normal ROM. Lower extremities: Normal inspection. No edema. Normal ROM. Neurological: Normal cognition. AAOx4. Normal speech. Psychological: Normal affect. Normal Mood. Skin: Warm. Dry. Normal color. (LESLYE DOBBINS) Course - Re-evaluation Re-evalutation: 10/25/17 20:01 Patient shows signs of urinary tract infection on analysis. Bedside ultrasound reveals heart tones which were shown to mother. Patient also has mildly dry oral mucous membranes. Discussed need to drink at least 5-6 glasses of water today and to complete antibiotic regimen that will be provided today. I did discuss if she develops any fevers worsening symptoms or localization of pain that is constant she is to return for further evaluation. Do not feel her signs and symptoms were consistent with appendicitis or any other life- threatening pathology at this time. (SHANNON WILLIAMSON) - Vital Signs Vital signs: Temp Pulse Resp BP Pulse Ox 98.1 F 78 18 125/68 99 10/25/17 16:52 10/25/17 16:52 10/25/17 16:52 10/25/17 16:52 10/25/17 16:52 - Laboratory Laboratory results interpreted by me: 10/25/17 10/25/17 18:00 18:00 Beta HCG, Quant 65065.00 H Urine Urobilinogen 2.0 H Ur Leukocyte Esterase MODERATE H Discharge - Discharge Clinical Impression: Dehydration Urinary tract infection Qualifiers: Urinary tract infection type: site unspecified Hematuria presence: without hematuria Qualified Code(s): N39.0 - Urinary tract infection, site not specified Disposition: HOME, SELF-CARE Instructions: Observation for Appendicitis ([facility]), Urinary Tract Infection ([facility]) Additional Instructions: Per discussion, please drink at least 5-6 glasses of water daily and try to refrain from sugary beverages. Prescriptions: Nitrofurantoin Monohyd/M-Cryst [Macrobid 100 mg Capsule] 1 tab PO BID #20 capsule Referrals: MELISA VOSS MD [Primary Care Provider] - Follow up as needed Scribe Attestation: 11/02/17 07:55 I personally performed the services described in the documentation, reviewed and edited the documentation which was dictated to the scribe in my presence, and it accurately records my words and actions. (SHANNON WILLIAMSON) Scribe Documentation - Scribe Written by Amber:: Amber Hernandez, 10/25/2017 acting as scribe for :: Nicolas
== END 2017-10-25 20:10 | disposition home or self-care (01) ==
LOC: ER 16:41
DX: O23.40 Unspecified infection of urinary tract in pregnancy, unspecified trimester (principal); O99.280 Endocrine, nutritional and metabolic diseases complicating pregnancy, unspecified trimester; E86.0 Dehydration; O26.899 Other specified pregnancy related conditions, unspecified trimester; R10.30 Lower abdominal pain, unspecified; O99.519 Diseases of the respiratory system complicating pregnancy, unspecified trimester; J45.909 Unspecified asthma, uncomplicated; Z3A.00 Weeks of gestation of pregnancy not specified; Z87.19 Personal history of other diseases of the digestive system; Z90.49 Acquired absence of other specified parts of digestive tract; Z88.5 Allergy status to narcotic agent
CPT/HCPCS: 99284; 36415; 87086; 84702; 81001; J3490

== ENCOUNTER 2018-04-21 10:05 | Outpatient (CLI) | payer MEDICAID ==
--- NOTE | 2018-04-21 10:51 | Non Stress Test Report ---
Non Stress Test Datetime Report Generated by CPN: 04/21/2018 10:51 DEMOGRAPHIC EGA NST: 37.5 INDICATION Indication for Study: Ordered by Provider VITAL SIGNS Temperature - NST: 97.8 RESP - NST: 18 MONITORING Monitor Explained: Monitor Explained; Test Explained; Patient Verbalized Understanding Time on Monitor: 04/21/2018 10:20 Time off Monitor: 04/21/2018 10:42 NST Duration: 22 NST INTERVENTIONS NST Interventions: PO Hydration; Reposition Patient Physician Notified NST: N. Irvin CNM BABY A: [id number] BABY A Movement : Present Contraction Frequency : irritability FHR Baseline : 130 Accelerations : 15X15 Decelerations : None Variability : Moderate 6-25bpm NST Review: Meets Criteria for Reactive NST NST Review and Verified By : Marjan Zhang RN NSAvery Results: Reactive NST REPORT Report Trigger: Send Report
== END 2018-04-21 10:48 | disposition home or self-care (01) ==
LOC: LC 10:05
PROVIDERS: ATTEND Obstetrics & Gynecology
PROC: 4A1HXCZ Monitoring of Products of Conception, Cardiac Rate, External Approach (ICD-10-PCS; principal; 2018-04-21)
DX: O47.1 False labor at or after 37 completed weeks of gestation (principal); Z3A.37 37 weeks gestation of pregnancy
CPT/HCPCS: 59025

== ENCOUNTER 2018-04-23 17:06 | Outpatient (CLI) | payer MEDICAID ==
[2018-04-23 18:15] LABS: APPEARANCE,URINE CLOUDY; BILIRUBIN,URINE SMALL (NEGATIVE); GLUCOSE, URINE NEGATIVE (NEGATIVE); KETONES,URINE TRACE mg/dL (NEGATIVE); LEUKOCYTE ESTERASE,URINE MODERATE (NEGATIVE); NITRITE,URINE NEGATIVE (NEGATIVE); PROTEIN,URINE 30 mg/dL (NEGATIVE); URINE SPECIFIC GRAVITY 1.032
[2018-04-23 18:19] LABS: COLOR,URINE DARK YELLOW
--- NOTE | 2018-04-23 18:26 | L&D Progress Notes ---
PROGRESS NOTES Datetime Report Generated by CPN: 04/23/2018 18:26 PROGRESS NOTE Impression Other: decreased movement Impression Other: decreased movement Procedures- Other: monitor Plan: Continue Present Management Vital Signs : Reviewed; Within Normal Limits Comment: Pt here today for decreased movement. Pt getting twice weekly NSTs and q weekly AFIs secondary to GDM. On 04/21/18, JEFF 6.81 cm. Bedside US showed subjectively normal JEFF. Pt scheduled for Repeat C/S on Thursday, but has no more NSTs scheduled. Today's NST reactive. Decreased movement resolved. Pt needs an NST this upcoming week. FETUS A FHR - Baseline: 120s Monitoring: External US Accelerations: 15X15 Decelerations: None FHR Category: Category I : 38.0 SIGNATURE SIGNATURE: [id number];,[id number] SIGNATURE: [id number] Signature: with User ID: [email or web address]
[2018-04-23 18:33] LABS: URINE AMPHETAMINES SCREEN NEGATIVE; URINE BARBITURATES SCREEN NEGATIVE; URINE BENZODIAZEPINES SCREEN NEGATIVE; URINE COCAINE SCREEN NEGATIVE; URINE MARIJUANA (THC) SCREEN NEGATIVE; URINE METHADONE SCREEN NEGATIVE; URINE PHENCYCLIDINE SCREEN NEGATIVE
--- NOTE | 2018-04-23 18:38 | Non Stress Test Report ---
Non Stress Test Datetime Report Generated by CPN: 04/23/2018 18:38 DEMOGRAPHIC EGA NST: 38.0 INDICATION Indication for Study: Ordered by Provider MONITORING Monitor Explained: Monitor Explained; Test Explained; Patient Verbalized Understanding Time on Monitor: 04/23/2018 17:25 Time off Monitor: 04/23/2018 18:01 NST Duration: 36 NST INTERVENTIONS NST Interventions: PO Hydration Physician Notified NST: Dr younger BABY A: [id number] BABY A Movement : Present Contraction Frequency : 0 FHR Baseline : 140 Accelerations : 15X15 Decelerations : None Variability : Moderate 6-25bpm NST Review: Meets Criteria for Reactive NST NST Review and Verified By : Herminia Eugene RNC NST Results: Reactive NST REPORT Report Trigger: Send Report
== END 2018-04-23 18:30 | disposition home or self-care (01) ==
LOC: LC 17:06
PROVIDERS: ATTEND Obstetrics & Gynecology
PROC: 4A1HXCZ Monitoring of Products of Conception, Cardiac Rate, External Approach (ICD-10-PCS; principal; 2018-04-23)
DX: O36.8130 Decreased fetal movements, third trimester, not applicable or unspecified (principal); Z3A.38 38 weeks gestation of pregnancy
CPT/HCPCS: 59025; 80307; 81005

== ENCOUNTER 2018-04-30 04:49 | Inpatient (IN) | payer MEDICAID ==
[2018-04-28 11:22] LABS: ABSOLUTE BASOPHILS # (AUTO) 0.1 10^3/uL (0.0-0.2); ABSOLUTE EOSINOPHILS # (AUTO) 0.1 10^3/uL (0.0-0.6); ABSOLUTE LYMPHOCYTES (AUTO) 1.4 10^3/uL (0.5-4.7); ABSOLUTE MONOCYTES (AUTO) 0.7 10^3/uL (0.1-1.4); ABSOLUTE NEUT (AUTO) 7.9 10^3/uL (1.7-8.2); BASOPHILS % (AUTO) 0.9 % (0-2); EOSINOPHILS % (AUTO) 1.2 % (0-6); HEMATOCRIT 36.2 % (36.0-47.0); HEMOGLOBIN 12.2 g/dL (12.0-15.5); LYMPHOCYTES % (AUTO) 13.8 % (13-45); MEAN CORPUSCULAR HEMOGLOBIN 29.7 pg (27.0-33.4); MEAN CORPUSCULAR HGB CONC 33.6 g/dL (32.0-36.0); MEAN CORPUSCULAR VOLUME 88 fl (80-97); MONOCYTES % (AUTO) 6.5 % (3-13); PLATELET COUNT 303 10^3/uL (150-450); RED CELL DISTRIBUTION WIDTH 14.4 % (11.5-14.0); SEGMENTED NEUTROPHILS % (AUTO) 77.6 % (42-78); TOTAL CELLS COUNTED % (AUTO) 100 %; WHITE BLOOD COUNT 10.2 10^3/uL (4.0-10.5)
[2018-04-28 11:26] LABS: APPEARANCE,URINE CLOUDY; BILIRUBIN,URINE NEGATIVE (NEGATIVE); COLOR,URINE YELLOW; GLUCOSE, URINE NEGATIVE (NEGATIVE); KETONES,URINE NEGATIVE (NEGATIVE); LEUKOCYTE ESTERASE,URINE MODERATE (NEGATIVE); NITRITE,URINE NEGATIVE (NEGATIVE); PROTEIN,URINE NEGATIVE (NEGATIVE); URINE SPECIFIC GRAVITY 1.016
[2018-04-28 11:36] LABS: URINE AMPHETAMINES SCREEN NEGATIVE; URINE BARBITURATES SCREEN NEGATIVE; URINE BENZODIAZEPINES SCREEN NEGATIVE; URINE COCAINE SCREEN NEGATIVE; URINE MARIJUANA (THC) SCREEN NEGATIVE; URINE METHADONE SCREEN NEGATIVE; URINE PHENCYCLIDINE SCREEN NEGATIVE
[2018-04-30] MEDS ORDERED: LACTATED RINGERS 1000 ML IV PRN (05:00)
[2018-04-30] MEDS ORDERED: LIDOCAINE 0.5% INJ-PF (5 MG/ML) 50 ML SDV SUBCUT PRN (05:00)
[2018-04-30] MEDS ORDERED: CEFTRIAXONE 1 GM/D5W RTU 1 GM/50 ML RTUPB IV PRN (05:18)
[2018-04-30] MEDS ORDERED: AZITHROMYCIN 500 MG in DEXTROSE 5%-WATER 250 ML IV PRN (05:18)
[2018-04-30] MEDS ORDERED: RINGERS SOLUTION,LACTATED 2,000 ML IV ONE (05:30)
[2018-04-30] MEDS ORDERED: CEFAZOLIN 1 GM/D5W RTU 1 GM/50 ML RTUPB IV ONE (06:22)
[2018-04-30] MEDS ORDERED: AZITHROMYCIN INJ 500 MG VIAL IV ONE (06:22)
[2018-04-30] MEDS ORDERED: OXYTOCIN 10 UNIT/ML VIAL ONE (07:23)
[2018-04-30] MEDS ORDERED: FENTANYL CITRATE INJ/PF 100 MCG/2 ML AMPUL ONE (07:23)
[2018-04-30] MEDS ORDERED: KETOROLAC TROMETHAMINE INJ/PF 30 MG/1 ML SDV ONE (07:23)
[2018-04-30] MEDS ORDERED: EPHEDRINE SULFATE INJ 50 MG/1 ML AMPULE ONE (07:23)
[2018-04-30] MEDS ORDERED: MIDAZOLAM 2 MG/2 ML INJ ONE (07:24)
[2018-04-30] MEDS ORDERED: ONDANSETRON HCL INJ/PF 4 MG/2 ML SDV ONE (07:24)
[2018-04-30] MEDS ORDERED: ACETAMINOPHEN 1,000 MG/100 ML RTUPB IV ONE (07:24)
[2018-04-30] MEDS ORDERED: OXYTOCIN/NORMAL SALINE 20 UNIT/1,000 ML RTUINJ ONE (07:24)
[2018-04-30] MEDS ORDERED: METHYLERGONOVINE MALEATE INJ/PF 0.2 MG/1 ML AMPULE ONE (07:25)
[2018-04-30] MEDS ORDERED: CARBOPROST TROMETHAMINE INJ 250 MCG/1 ML AMPULE ONE (07:25)
[2018-04-30] MEDS ORDERED: BUPIVACAINE HCL/DEX-WATER/PF 15 MG/2 ML AMPULE ONE (07:30)
[2018-04-30] MEDS ORDERED: DIPHENHYDRAMINE HCL 50 MG/ML VIAL IV PRN (08:20)
[2018-04-30] MEDS ORDERED: MEPERIDINE HCL/PF INJ 25 MG/1 ML DISP.SYRIN IV PRN (08:20)
[2018-04-30] MEDS ORDERED: MORPHINE SULFATE 10 MG/ML INJ IV PRN (08:20)
[2018-04-30] MEDS ORDERED: ONDANSETRON HCL INJ/PF 4 MG/2 ML SDV IV PRN (08:20)
[2018-04-30] MEDS ORDERED: OXYCODONE-ACETAMINOPHEN 5-325 MG TABLET PO PRN ×3 (08:20→08:32)
[2018-04-30] MEDS ORDERED: PROMETHAZINE HCL INJ 25 MG/1 ML VIAL IV PRN ×3 (08:20→08:32)
[2018-04-30] MEDS ORDERED: FENTANYL CITRATE INJ/PF 100 MCG/2 ML AMPUL IV PRN ×3 (08:20)
[2018-04-30] MEDS ORDERED: DIPH/PERTUSS(ACELL)/TETANUS VAC/PF 0.5 ML SYR (>=10YO) IM PRN (08:32)
[2018-04-30] MEDS ORDERED: ACETAMINOPHEN 325 MG TABLET PO PRN (08:32)
[2018-04-30] MEDS ORDERED: SIMETHICONE 80 MG TAB.CHEW PO PRN (08:32)
[2018-04-30] MEDS ORDERED: MEASLES,MUMPS&RUBELLA VACC/PF 0.5 ML VIAL SUBCUT PRN (08:32)
[2018-04-30] MEDS ORDERED: MORPHINE SULFATE 10 MG/ML INJ IM PRN (08:32)
[2018-04-30] MEDS ORDERED: OXYTOCIN/NORMAL SALINE 20 UNIT/1,000 ML RTUINJ IV PRN (08:32)
[2018-04-30] MEDS ORDERED: ACETAMINOPHEN 1,000 MG/100 ML RTUPB IV PRN (08:32)
--- NOTE | 2018-04-30 08:37 | PDOC DELIVERY SUMMARY ---
Delivery Summary - Maternal Hx : IV Hx # Term Pregnancies: 3 Hx # Pregnancies: 0 FLYNN: 05/07/18 Gestational Age: 39 Risk Factors: Gestational Diabetes Ruptured Membranes: AROM Time of Rupture: 08:07 Fluids: Clear - Delivery Labor: Not In Labor Presentation: Breech Heart Rate Monitoring: Done Pre-Operatively Support Person Present: Yes Location: OR : Scheduled Placenta: Within Normal Limits Delivery of Placenta Date: 04/30/18 Delivery of Placenta Time: 08:08 - Medications Type of Anesthesia:: Spinal - Infant Assess and Care Male Delivery of Date: 04/30/18 Delivery of Time: 08:07 at 1 minute: 8 at 5 minutes: 9 Preprinted Number On Band: [id number] Infant Skin to Skin: Yes - Delivery Personnel Aircraft Time Clerk: SULEMA Catherine RN: CHUY WRAY RN: STEPHEN GRAVES MD: VENKATA GONZALES
--- NOTE | 2018-04-30 08:46 | OPERATIVE REPORT E ---
Operative Report NAME: JANINE ALVAREZ : 1985 AGE: 32Y DATE OF SURGERY: 04/30/2018 ROOM: 216 PREOPERATIVE DIAGNOSIS: INTRAUTERINE AT TERM WITH PRIOR AND BREECH PRESENTATION. POSTOPERATIVE DIAGNOSIS: INTRAUTERINE AT TERM WITH PRIOR AND BREECH PRESENTATION. OPERATION: Repeat low transverse with delivery of viable male, Apgars 8-9. ESTIMATED BLOOD LOSS: Less than 1000 mL. TISSUE REMOVED: Placenta. SURGEON: Marjan GONZALES M.D. ANESTHESIA: Spinal. PROCEDURE: The patient was placed in a supine position, rolled on the right side. Prepped and draped in usual sterile fashion. A Pfannenstiel incision was made through the existing eschar and incision extended through subcutaneous tissue. Fascia and rectus muscles were bluntly and sharply divided. The parietal peritoneum was entered with blunt dissection. The uterus was nicked in the midline and extended bilaterally. delivered through the uterine incision. Nose and mouth suctioned with bulb syringe. The cord was clamped. The was passed from the table. The infant was delivered via breech extraction. The placenta was delivered. Uterus closed in 2 layers using 0 Vicryl, first a running stitch and 2nd Lembert stitch imbricating the first layer. Two areas of bleeding were noted and were controlled with [id number] sutures of 0 Vicryl. Hemostasis was noted. Fascia was closed with 0 Vicryl, skin closed with subcu absorbable loc. The patient tolerated the procedure well and was taken to the recovery room in good condition. Urine remained clear throughout the procedure. Infant went to nursery in good condition. DICTATING PHYSICIAN: Marjan GONZALES M.D. [id number] PHY#: [id number] ID: [id number] JOB#: [id number] ACCT: [id number] cc:Marjan GONZALES M.D. >
[2018-04-30] MEDS ORDERED: MORPHINE SULFATE 10 MG/ML INJ ONE (09:54)
[2018-04-30] MEDS: OXYCODONE-ACETAMINOPHEN 5-325 MG TABLET PO PRN ×2 (12:16→19:57)
[2018-04-30] MEDS: KETOROLAC TROMETHAMINE INJ/PF 30 MG/1 ML SDV IV SCH ×2 (14:14→21:31)
[2018-04-30] MEDS: DOCUSATE SODIUM 100 MG CAPSULE PO SCH ×2 (17:55→19:56)
[2018-04-30] MEDS: PRENATAL VITAMIN W DHA CAPSULE PO SCH (17:55)
[2018-05-01] MEDS: KETOROLAC TROMETHAMINE INJ/PF 30 MG/1 ML SDV IV SCH (05:18)
[2018-05-01 05:23] LABS: HEMATOCRIT 32.8 % (36.0-47.0); MEAN CORPUSCULAR HEMOGLOBIN 29.4 pg (27.0-33.4); MEAN CORPUSCULAR HGB CONC 33.5 g/dL (32.0-36.0); MEAN CORPUSCULAR VOLUME 88 fl (80-97); PLATELET COUNT 231 10^3/uL (150-450); RED BLOOD COUNT 3.74 10^6/uL (3.72-5.28); RED CELL DISTRIBUTION WIDTH 14.6 % (11.5-14.0); WHITE BLOOD COUNT 10.5 10^3/uL (4.0-10.5)
[2018-05-01] MEDS: OXYCODONE-ACETAMINOPHEN 5-325 MG TABLET PO PRN ×2 (07:33→14:08)
--- NOTE | 2018-05-01 09:30 | PDOC PROGRESS REPORT ---
Subjective-OB Progress Note for:: 05/01/18 Subjective: Sitting up in chair eating bkf, passing gas, pain under control, scant bleeding , bottle feeding, needs bra Physical Exam (OB) Vital Signs: Temp Pulse Resp BP Pulse Ox 98.0 F 82 18 131/68 H 98 05/01/18 03:52 05/01/18 03:52 05/01/18 03:52 05/01/18 03:52 05/01/18 03:52 Intake & Output 04/30/18 05/01/18 05/02/18 06:59 06:59 06:59 Intake Total 700 Output Total 1400 Balance -700 Weight 122.47 kg - PIH/Pre-Eclampsia Clonus: Negative Headache: Absent Epigastric Pain: No Visual Changes: No - Dressing Removed: No - medipore dressing D&I, no drainage, redness or swelling noted Incision: Dressing, Well Approximated - Lochia Lochia Amount: Scant < 10 ml Lochia Color: Rubra/Red - Abdomen Description: Soft Hernia Present: No Fundal Description: Firm, Midline Fundal Height: u/u - u/2 Objective-Diagnostic Laboratory: 05/01/18 05:17 05/01/18 05:17 WBC 10.5 RBC 3.74 Hgb 11.0 L Hct 32.8 L MCV 88 MCH 29.4 MCHC 33.5 RDW 14.6 H Plt Count 231 Assessment and Plan(PN) - Assessment and Plan (1) Obesity Qualifiers: Obesity type: due to excess calories Is this a current diagnosis for this admission?: Yes (2) Gestational diabetes mellitus (GDM) affecting fourth Is this a current diagnosis for this admission?: Yes (3) Status post repeat low transverse section Is this a current diagnosis for this admission?: Yes - Time Spent with Patient Time with patient: Less than 15 minutes Medications reviewed and adjusted accordingly: Yes - Disposition Anticipated Discharge: Home Within: within 48 hours
[2018-05-01] MEDS: DOCUSATE SODIUM 100 MG CAPSULE PO SCH ×2 (10:10→17:54)
[2018-05-01] MEDS: PRENATAL VITAMIN W DHA CAPSULE PO SCH (10:10)
[2018-05-01] MEDS: IBUPROFEN 800 MG TABLET PO SCH ×3 (13:10→23:42)
[2018-05-02] MEDS: IBUPROFEN 800 MG TABLET PO SCH ×2 (05:05→12:42)
[2018-05-02] MEDS: OXYCODONE-ACETAMINOPHEN 5-325 MG TABLET PO PRN (05:51)
--- NOTE | 2018-05-02 09:44 | PDOC PROGRESS REPORT ---
Subjective-OB Progress Note for:: 05/02/18 Subjective: Sitting up eating bkf, all of family at BS, has help at home, bottle feeding, ready to go home, voiding, pain under control Physical Exam (OB) Vital Signs: Temp Pulse Resp BP Pulse Ox 98.4 F 87 18 137/76 H 97 05/02/18 07:32 05/02/18 07:32 05/02/18 07:32 05/02/18 07:32 05/02/18 07:32 Intake & Output 05/01/18 05/02/18 05/03/18 06:59 06:59 06:59 Intake Total 700 Output Total 1400 Balance -700 - PIH/Pre-Eclampsia Clonus: Negative Headache: Absent Epigastric Pain: No Visual Changes: No - Dressing Removed: No Incision: Open Closure Type: Sutures - Lochia Lochia Amount: Scant < 10 ml Lochia Color: Rubra/Red - Abdomen Description: Tender, Soft, Round Hernia Present: No Fundal Description: Firm, Midline Fundal Height: u/u - u/2 Objective-Diagnostic Laboratory: 05/01/18 05:17 Assessment and Plan(PN) - Assessment and Plan (1) Obesity Qualifiers: Obesity type: due to excess calories Is this a current diagnosis for this admission?: Yes (2) Gestational diabetes mellitus (GDM) affecting fourth Is this a current diagnosis for this admission?: Yes (3) Status post repeat low transverse section Is this a current diagnosis for this admission?: Yes - Time Spent with Patient Time with patient: Less than 15 minutes Medications reviewed and adjusted accordingly: Yes - Disposition Anticipated Discharge: Home Within: within 24 hours
--- NOTE | 2018-05-02 09:48 | PDOC DISCHARGE SUMMARY ---
Final Diagnosis Discharge Date: 05/02/18 - Final Diagnosis (1) Obesity Is this a current diagnosis for this admission?: Yes (2) Gestational diabetes mellitus (GDM) affecting fourth Is this a current diagnosis for this admission?: Yes (3) Status post repeat low transverse section Is this a current diagnosis for this admission?: Yes Discharge Data - Discharge Medication Prescriptions: Oxycodone HCl/Acetaminophen [Percocet 5-325 mg Tablet] 1 tab PO Q4HP PRN #20 tablet PRN Reason: Ibuprofen [Motrin 800 mg Tablet] 800 mg PO Q6 #60 tablet Home Medications: Fluticasone/Salmeterol [Advair 500-50 Diskus 28 Dose] 1 inh IH Q12 04/09/17 Pnv No.95/Ferrous Fum/Folic AC [ Multivitamin Tablet] 1 each PO DAILY Albuterol Sulfate [Proair HFA] 1 - 2 puff IH Q4 PRN 04/27/18 Omeprazole 40 mg PO QAM 04/27/18 Ibuprofen [Motrin 800 mg Tablet] 800 mg PO Q6 #60 tablet 05/02/18 Oxycodone HCl/Acetaminophen [Percocet 5-325 mg Tablet] 1 tab PO Q4HP PRN #20 tablet 05/02/18 Gestational Age: 39 Reason(s) for Admission: Ceasarean Section-Repeat, Gestional Diabetes Procedures: NST, Ultrasound Intrapartum Procedure(s): : Low Cervical, Transverse - Diagnosis Test Laboratory: Temp Pulse Resp BP Pulse Ox 98.4 F 87 18 137/76 H 97 05/02/18 07:32 05/02/18 07:32 05/02/18 07:32 05/02/18 07:32 05/02/18 07:32 04/28/18 04/28/18 05/01/18 10:36 10:47 05:17 RBC 4.10 3.74 Hgb 12.2 11.0 L Hct 36.2 32.8 L Urine Opiates Screen NEGATIVE - Discharge information/Instructions Discharge Activity: Activity As Tolerated, No Lifting Over 10 Pounds, No Lifting /Push/Pulling, Pelvic Rest Discharge Diet: As Tolerated, Regular Disposition: HOME, SELF-CARE Follow up with: [facility] in: 1, Weeks
[2018-05-02] MEDS: DOCUSATE SODIUM 100 MG CAPSULE PO SCH (10:00)
[2018-05-02] MEDS: PRENATAL VITAMIN W DHA CAPSULE PO SCH (10:00)
[2018-05-02 11:22] VITALS: BP 119/82
== END 2018-05-02 13:50 | disposition home or self-care (01) | DRG 788 ==
LOC: 2S 04:49
PROVIDERS: ADMIT Obstetrics & Gynecology Gynecology; ATTEND Obstetrics & Gynecology Gynecology
PROC: 4A1HXCZ Monitoring of Products of Conception, Cardiac Rate, External Approach (ICD-10-PCS; 2018-04-30)
PROC: 10D00Z1 Extraction of Products of Conception, Low, Open Approach (ICD-10-PCS; principal; 2018-04-30 07:45)
DX: O32.1XX0 Maternal care for breech presentation, not applicable or unspecified (principal); O34.211 Maternal care for low transverse scar from previous cesarean delivery; O24.429 Gestational diabetes mellitus in childbirth, unspecified control; O99.214 Obesity complicating childbirth; E66.09 Other obesity due to excess calories; Z83.3 Family history of diabetes mellitus; Z82.5 Family history of asthma and other chronic lower respiratory diseases; Z80.49 Family history of malignant neoplasm of other genital organs; Z88.6 Allergy status to analgesic agent; Z3A.39 39 weeks gestation of pregnancy; Z37.0 Single live birth
CPT/HCPCS: 1961; 36415; 59025; 80307; 81001; 82962; 85025; 85027; 86850; 86900; 86901; 90471; 90686; 90715; 94799; G0008; J0131; J0456; J1885; J2210; J2250; J2270; J2405; J2590; J3010; J3490; J7060; J7120

== ENCOUNTER 2018-07-10 17:03 | Emergency (ER) | payer SELFPAY ==
[2018-07-10] MEDS ORDERED: ONDANSETRON HCL INJ/PF 4 MG/2 ML SDV IV ONE (18:30)
[2018-07-10] MEDS ORDERED: KETOROLAC TROMETHAMINE INJ/PF 30 MG/1 ML SDV IV ONE (18:30)
[2018-07-10] MEDS ORDERED: NORMAL SALINE 1000 ML 1,000 ML IV ONE (18:30)
[2018-07-10 19:07] LABS: APPEARANCE,URINE SLIGHTLY-CLOUDY; BILIRUBIN,URINE NEGATIVE (NEGATIVE); COLOR,URINE YELLOW; GLUCOSE, URINE NEGATIVE (NEGATIVE); KETONES,URINE NEGATIVE (NEGATIVE); LEUKOCYTE ESTERASE,URINE SMALL (NEGATIVE); NITRITE,URINE NEGATIVE (NEGATIVE); PROTEIN,URINE 30 mg/dL (NEGATIVE); URINE SPECIFIC GRAVITY 1.014
[2018-07-10] MEDS ORDERED: FENTANYL CITRATE INJ/PF 100 MCG/2 ML AMPUL IV ONE (19:25)
--- NOTE | 2018-07-10 19:28 | RADIOLOGY REPORT (SQ) ---
EXAM DESCRIPTION: U/S NON OB PEL TV W/DOPPLER COMPLETED DATE/TIME: 07/10/2018 7:14 pm REASON FOR STUDY: likely ruptured cyst COMPARISON: Mildly limiting acoustical interference from bowel gas. TECHNIQUE: Dynamic and static grayscale images acquired of the pelvis via transvaginal approach and recorded on PACS. Additional selected color Doppler and spectral images recorded. LIMITATIONS: None. FINDINGS: UTERUS: Contour normal. No mass. ENDOMETRIAL STRIPE: No focal or generalized thickening. No masses. CERVIX: Nabothian cysts are noted. RIGHT OVARY AND DOPPLER: Normal size. No worrisome masses. Normal arterial vascular flow without evid ence for torsion. LEFT OVARY AND DOPPLER: Normal size. No worrisome masses. Normal arterial vascular flow without evide nce for torsion. FREE FLUID: None noted. OTHER: No other significant finding. MEASUREMENTS: UTERUS: 10.9 x 6.8 x 6.0 cm ENDOMETRIAL STRIPE: 3.6 mm RIGHT OVARY: 4.4 x 2.0 x 2.6 cm LEFT OVARY: 3.1 x 2.2 x 3.0 cm IMPRESSION: NORMAL TRANSVAGINAL PELVIC ULTRASOUND. TECHNICAL DOCUMENTATION: JOB ID: [id number] [employer]- All Rights Reserved Rev-11/20 Reading location - IP/workstation name: [email or web address]
--- NOTE | 2018-07-10 19:32 | ER Document Report ---
ED General - General Chief Complaint: Abdominal Pain Stated Complaint: ABDOMINAL PAIN Time Seen by Provider: 07/10/18 18:23 Notes: 32-year-old female with asthma and acid reflux with history of x3, most recent 8 weeks ago presents to the emergency department for extreme stabbing pain in her stomach and back. She states that the pain starts in the suprapubic area and radiates bilaterally around her lower abdomen into her back. She states the pain is been there for 2 days and rates it 5 out of 5. She states that she is currently on her period. She denies shortness of breath or chest pain. She denies fevers, chills, nausea vomiting, diarrhea. She denies any urinary frequency or dysuria but states that when she does urinate her stomach hurts. Last bowel movement was this morning. She states that she had a normal healing process with this most recent . TRAVEL OUTSIDE OF THE [place] IN LAST 30 DAYS: No - Related Data Allergies/Adverse Reactions: hydrocodone [From Vicodin] Allergy (Verified 07/10/18 17:05) Past Medical History - General Information source: Patient - Social History Smoking Status: Former Smoker Family History: Arthritis, DM, Hyperlipidemia, Hypertension, Malignancy, Other - Asthma, atrial fibrillation, tobacco use, cervical cancer Patient has suicidal ideation: No Patient has homicidal ideation: No Pulmonary Medical History: Reports: Hx Asthma Neurological Medical History: Reports: Hx Migraine Renal/ Medical History: Denies: Hx Peritoneal Dialysis GI Medical History: Reports: Hx Gastroesophageal Reflux Disease Past Surgical History: Reports: Hx Section - 4, Hx Cholecystectomy - Immunizations Hx Diphtheria, Pertussis, Tetanus Vaccination: Yes Review of Systems - Review of Systems Constitutional: See HPI EENT: No symptoms reported Cardiovascular: See HPI Respiratory: See HPI Gastrointestinal: See HPI Genitourinary: See HPI Female Genitourinary: See HPI Musculoskeletal: No symptoms reported Skin: No symptoms reported Hematologic/Lymphatic: No symptoms reported Neurological/Psychological: No symptoms reported Physical Exam - Vital signs Vitals: Temp Pulse Resp BP Pulse Ox 98.1 F 65 18 131/74 H 99 07/10/18 17:21 07/10/18 17:21 07/10/18 17:21 07/10/18 17:21 07/10/18 17:21 - Notes Notes: Reviewed vital signs and nursing note as charted by RN. CONSTITUTIONAL: Well-appearing, well-nourished, acting appropriately for age HEAD: Normocephalic, atraumatic, no swelling EYES: PERRL, Conjunctivae clear, no drainage, EOMI, no scleral icterus ENT: External ears without lesions, External auditory canal is patent, airway patent, mucous membranes pink and moist CARD: Regular rate and rhythm, no murmurs, no rubs, no gallops, capillary refill < 2 seconds, symmetric pulses RESP: The lungs are clear to auscultation bilaterally, no wheezing, no rales, no rhonchi. Respiratory rate and effort are normal, normal chest excursion. No respiratory distress, no retractions, no stridor, no nasal flaring, no accessory muscle use. ABD/GI: Obese abdomen, normal bowel sounds, non-distended, soft, suprapubic and bilateral lower quadrant tenderness to palpation that radiates around to her lower back, after lifting pannus scar is intact no evidence of infection, there is some redness and area is moist from skin to skin contact, no rebound, no guarding, no palpable organomegaly EXT: Normal ROM in all joints, non-tender to palpation, no effusions, no edema SKIN: Normal color for age and race, warm, dry, good turgor, no acute lesions noted NEURO: No facial asymmetry, moves all extremities equally, motor and sensory function intact Course - Re-evaluation Re-evalutation: 07/10/18 19:29 32-year-old female in mild discomfort with recent 8 weeks ago comes to the emergency department with suprapubic pain that radiates bilaterally around her bilateral lower abdominal quadrants into her back. The pain has been present for about 1 week but got acutely worse. She denies shortness of breath or chest pain. She denies urinary symptoms but states her stomach hurts and cramps when she urinates. She is currently on her period. Physical exam was only remarkable for moderate tenderness to palpation over the suprapubic area and bilateral lower abdominal quadrants. Transvaginal ultrasound was performed, radiologist read still pending. Labs ordered yet to be drawn. 07/10/18 21:39 Labs were unremarkable, within normal limits. Transvaginal ultrasound was completely normal, no free fluid noted, so unlikely a ruptured ovarian cyst. Plan was to perform a pelvic exam but patient declined and did not want one performed. I told patient's that because we still have an unclear etiology it is our recommendation to perform a pelvic exam but she absolutely did not want one completed discussed with Dr. Leavitt if it would be worth pursuing any additional modalities. His guidance was that because the patient's pain has been for 1 week and it is considered chronic there is no acute emergent condition at this time, which is reflected on physical exam and - Vital Signs Vital signs: Temp Pulse Resp BP Pulse Ox 98.1 F 65 18 131/74 H 99 07/10/18 17:21 07/10/18 17:21 07/10/18 17:21 07/10/18 17:21 07/10/18 17:21 - Laboratory Result Diagrams: 07/10/18 19:50 07/10/18 19:50 Laboratory results interpreted by me: 07/10/18 07/10/18 18:40 19:50 RDW 14.8 H Urine Protein 30 H Urine Blood LARGE H Urine Urobilinogen 4.0 H Ur Leukocyte Esterase SMALL H Discharge - Discharge Clinical Impression: Abdominal pain Qualifiers: Abdominal location: lower abdomen, unspecified Qualified Code(s): R10.30 - Lower abdominal pain, unspecified Condition: Good Disposition: HOME, SELF-CARE Instructions: Abdominal Pain ([facility]), Antispasmodics ([facility]) Additional Instructions: You have been seen in the Emergency Department (ED) for abdominal pain. Your evaluation did not identify a clear cause of your symptoms but was generally reassuring. Please follow up with your doctor as soon as possible regarding today's emergent visit and the symptoms that are bothering you. Return to the ED if your abdominal pain worsens or fails to improve, you develop bloody vomiting, bloody diarrhea, you are unable to tolerate fluids due to vomiting, fever greater than 101, or other symptoms that concern you. Referrals: SHIV KRISHNA MD [Primary Care Provider] - Follow up as needed
[2018-07-10 20:06] LABS: ABSOLUTE EOSINOPHILS # (AUTO) 0.1 10^3/uL (0.0-0.6); ABSOLUTE LYMPHOCYTES (AUTO) 1.6 10^3/uL (0.5-4.7); ABSOLUTE MONOCYTES (AUTO) 0.4 10^3/uL (0.1-1.4); ABSOLUTE NEUT (AUTO) 5.9 10^3/uL (1.7-8.2); BASOPHILS % (AUTO) 0.6 % (0-2); EOSINOPHILS % (AUTO) 1.8 % (0-6); HEMATOCRIT 38.4 % (36.0-47.0); HEMOGLOBIN 12.8 g/dL (12.0-15.5); MEAN CORPUSCULAR HEMOGLOBIN 28.5 pg (27.0-33.4); MEAN CORPUSCULAR HGB CONC 33.4 g/dL (32.0-36.0); MEAN CORPUSCULAR VOLUME 85 fl (80-97); MONOCYTES % (AUTO) 4.9 % (3-13); PLATELET COUNT 332 10^3/uL (150-450); RED BLOOD COUNT 4.51 10^6/uL (3.72-5.28); RED CELL DISTRIBUTION WIDTH 14.8 % (11.5-14.0); SEGMENTED NEUTROPHILS % (AUTO) 72.7 % (42-78); TOTAL CELLS COUNTED % (AUTO) 100 %; WHITE BLOOD COUNT 8.1 10^3/uL (4.0-10.5)
[2018-07-10 20:20] LABS: ALANINE AMINOTRANSFERASE 26 U/L (9-52); ALBUMIN 4.2 g/dL (3.5-5.0); ALKALINE PHOSPHATASE 117 U/L (38-126); ANION GAP 11 (5-19); ASPARTATE AMINO TRANSFERASE 28 U/L (14-36); BILIRUBIN,DIRECT 0.2 mg/dL (0.0-0.4); BILIRUBIN,TOTAL 0.8 mg/dL (0.2-1.3); BLOOD UREA NITROGEN 16 mg/dL (7-20); CALCIUM 9.4 mg/dL (8.4-10.2); CARBON DIOXIDE 22 mmol/L (22-30); CHLORIDE 107 mmol/L (98-107); GLUCOSE 87 mg/dL (75-110); LIPASE 72.3 U/L (23-300); SODIUM 140.1 mmol/L (137-145); TOTAL PROTEIN 7.1 g/dL (6.3-8.2)
[2018-07-10 21:50] VITALS: BP 136/72
== END 2018-07-10 21:50 | disposition home or self-care (01) ==
LOC: ER 17:03
DX: R10.30 Lower abdominal pain, unspecified (principal); J45.909 Unspecified asthma, uncomplicated; K21.9 Gastro-esophageal reflux disease without esophagitis; Z88.1 Allergy status to other antibiotic agents; Z87.891 Personal history of nicotine dependence; Z98.890 Other specified postprocedural states
CPT/HCPCS: 99284; 36415; 87086; 83690; 85025; 81025; 80053; 81001; 76830; 93976; J3010; J1885; J2405; J7030

== ENCOUNTER 2018-10-21 21:41 | Emergency (ER) | payer SELFPAY ==
[2018-10-21 22:30] VITALS: BP 160/90
== END 2018-10-22 00:31 | disposition left against medical advice (07) ==
LOC: ER 21:41
DX: Z53.21 Procedure and treatment not carried out due to patient leaving prior to being seen by health care provider (principal); L02.91 Cutaneous abscess, unspecified

== ENCOUNTER 2018-10-26 08:24 | Emergency (ER) | payer SELFPAY ==
[2018-10-26 08:37] VITALS: BP 153/79
[2018-10-26] MEDS ORDERED: IBUPROFEN 800 MG TABLET PO ONE (09:08)
[2018-10-26] MEDS ORDERED: SULFAMETHOXAZOLE/TRIMETHOPRIM 800-160 MG TABLET PO ONE (09:08)
--- NOTE | 2018-10-26 09:09 | ER Document Report ---
HPI - HPI Patient complains to provider of: abscess Time Seen by Provider: 10/26/18 09:04 Onset: Last week Onset/Duration: Worse Quality of pain: Achy Pain Level: 5 Context: Patient complains of abscess to right flank area for the past week. Patient states she has been putting warm compresses and attempting to pop the area without success. Patient denies any fever. Associated Symptoms: denies: Fever Exacerbated by: Movement Relieved by: Denies Similar symptoms previously: Yes Recently seen / treated by doctor: No - ROS ROS below otherwise negative: Yes Systems Reviewed and Negative: Yes All other systems reviewed and negative - CONSTITUTIONAL Constitutional: DENIES: Fever, Chills - REPRODUCTIVE Reproductive: DENIES: : - MUSCULOSKELETAL Musculoskeletal: REPORTS: Back Pain - DERM Skin Color: Erythema Notes: Abscess to right flank Past Medical History - General Information source: Patient - Social History Smoking Status: Never Smoker Frequency of alcohol use: None Drug Abuse: None Occupation: None Lives with: Family Family History: Arthritis, DM, Hyperlipidemia, Hypertension, Malignancy, Other - Asthma, atrial fibrillation, tobacco use, cervical cancer - Past Medical History Cardiac Medical History: Denies: Hx Pulmonary Embolism Pulmonary Medical History: Reports: Hx Asthma Denies: Hx Sleep Apnea, Hx Tuberculosis Neurological Medical History: Reports: Hx Migraine Endocrine Medical History: Denies: Hx Hyperthyroidism, Hx Hypothyroidism Renal/ Medical History: Denies: Hx Kidney Stones, Hx Peritoneal Dialysis GI Medical History: Reports: Hx Gastroesophageal Reflux Disease. Denies: Hx Hiatal Hernia, Hx Ulcer Past Surgical History: Reports: Hx Section - 4, Hx Cholecystectomy - Immunizations Hx Diphtheria, Pertussis, Tetanus Vaccination: Yes Vertical Provider Document - CONSTITUTIONAL Agree With Documented VS: Yes Exam Limitations: No Limitations General Appearance: WD/WN, No Apparent Distress - INFECTION CONTROL TRAVEL OUTSIDE OF THE [place] IN LAST 30 DAYS: No - HEENT HEENT: Atraumatic, Normocephalic - NECK Neck: Normal Inspection - RESPIRATORY Respiratory: Breath Sounds Normal, No Respiratory Distress - CARDIOVASCULAR Cardiovascular: Regular Rate, Regular Rhythm - BACK Back: Abnormal Inspection - Abscess to right flank area - MUSCULOSKELETAL/EXTREMETIES Musculoskeletal/Extremeties: CIERRA BISHOP - NEURO Level of Consciousness: Awake, Alert, Appropriate Motor/Sensory: No Motor Deficit - DERM Integumentary: Warm, Dry, Abscess - Abscess to right flank area with erythema 3 cm x 3 cm with a central area of fluctuance measuring 1 cm. Course - Vital Signs Vital signs: Temp Pulse Resp BP Pulse Ox 98.3 F 85 18 153/79 H 97 10/26/18 08:36 10/26/18 08:36 10/26/18 08:36 10/26/18 08:36 10/26/18 08:36 Procedures - Incision and Drainage Right Back Type: Simple Anesthetic type: 1% Lidocaine Blade size: 11 I&D procedure: Betadine prep applied Incision Method: Incision made by scalpel Amount/type of drainage: mod amount of purulent drainage Adult Front & Back picture: 1 - abscess Discharge - Discharge Clinical Impression: Abscess, Encounter for incision and drainage procedure Condition: Stable Disposition: HOME, SELF-CARE Instructions: Abscess ([facility]), Post Incision and Drainage, Trimethoprim-Sulfa ([facility]) Additional Instructions: Return immediately for any new or worsening symptoms Followup with your primary care provider, call tomorrow to make a followup appointment Prescriptions: Naproxen [Naprosyn 250 Nmg Tablet] 1 tab PO BID #14 tablet Sulfamethoxazole/Trimethoprim [Bactrim Ds Tablet] 1 each PO BID #20 tablet Referrals: [facility] [Provider Group] - Follow up as needed
== END 2018-10-26 09:50 | disposition home or self-care (01) ==
LOC: ER 08:24
PROC: 0H97XZZ Drainage of Abdomen Skin, External Approach (ICD-10-PCS; principal; 2018-10-26)
DX: L02.211 Cutaneous abscess of abdominal wall (principal); M54.9 Dorsalgia, unspecified; J45.909 Unspecified asthma, uncomplicated
CPT/HCPCS: 99283

== ENCOUNTER 2020-03-01 09:06 | Emergency (ER) | payer SELFPAY ==
--- NOTE | 2020-03-01 10:23 | RADIOLOGY REPORT (SQ) ---
EXAM DESCRIPTION: ELBOW RIGHT OVER 2 VIEWS IMAGES COMPLETED DATE/TIME: 03/01/2020 9:55 am REASON FOR STUDY: fall and pain. COMPARISON: None. NUMBER OF VIEWS: Four views. TECHNIQUE: AP, lateral, and both oblique radiographic images acquired of the right elbow. LIMITATIONS: None. FINDINGS: MINERALIZATION: Normal. BONES: No acute fracture or dislocation. No worrisome bone lesions. JOINT: No effusion. SOFT TISSUES: No soft tissue swelling. No foreign body. OTHER: No other significant finding. IMPRESSION: NEGATIVE STUDY OF THE RIGHT ELBOW. NO RADIOGRAPHIC EVIDENCE OF ACUTE INJURY. TECHNICAL DOCUMENTATION: JOB ID: [id number] 2010 [employer]- All Rights Reserved Reading location - IP/workstation name: [email or web address]
--- NOTE | 2020-03-01 11:17 | ER Document Report ---
HPI - HPI Patient complains to provider of: Right elbow injury Time Seen by Provider: 03/01/20 11:09 Onset: Other Onset/Duration: Persistent Pain Level: 4 Context: Patient states that she was chasing her toddler a month ago and fell landing on her right elbow. Patient complains of persistent right elbow pain since that injury. Patient denies any new injury. Associated Symptoms: Other - Right elbow pain Exacerbated by: Movement Relieved by: Denies Similar symptoms previously: No Recently seen / treated by doctor: No - ROS ROS below otherwise negative: Yes Systems Reviewed and Negative: Yes All other systems reviewed and negative - CONSTITUTIONAL Constitutional: DENIES: Fever - GASTROINTESTINAL Gastrointestinal: DENIES: Nausea - REPRODUCTIVE Reproductive: DENIES: : - MUSCULOSKELETAL Musculoskeletal: REPORTS: Extremity pain - DERM Skin Color: Normal Skin Problems: None Past Medical History - General Information source: Patient - Social History Smoking Status: Never Smoker Frequency of alcohol use: None Family History: Arthritis, DM, Hyperlipidemia, Hypertension, Malignancy, Other - Asthma, atrial fibrillation, tobacco use, cervical cancer - Past Medical History Cardiac Medical History: Denies: Hx Pulmonary Embolism Pulmonary Medical History: Reports: Hx Asthma Denies: Hx Sleep Apnea, Hx Tuberculosis Neurological Medical History: Reports: Hx Migraine Endocrine Medical History: Denies: Hx Hyperthyroidism, Hx Hypothyroidism Renal/ Medical History: Denies: Hx Kidney Stones, Hx Peritoneal Dialysis GI Medical History: Reports: Hx Gastroesophageal Reflux Disease. Denies: Hx Hiatal Hernia, Hx Ulcer Past Surgical History: Reports: Hx Section - 4, Hx Cholecystectomy - Immunizations Hx Diphtheria, Pertussis, Tetanus Vaccination: Yes Vertical Provider Document - CONSTITUTIONAL Agree With Documented VS: Yes Exam Limitations: No Limitations General Appearance: WD/WN, No Apparent Distress - INFECTION CONTROL TRAVEL OUTSIDE OF THE [place] IN LAST 30 DAYS: No - HEENT HEENT: Atraumatic, Normocephalic - NECK Neck: Normal Inspection, Supple - RESPIRATORY Respiratory: No Respiratory Distress - CARDIOVASCULAR Cardiovascular: Regular Rate, Regular Rhythm Pulses: Normal: Radial - BACK Back: Normal Inspection - MUSCULOSKELETAL/EXTREMETIES Musculoskeletal/Extremeties: MAEW, Tender - Tenderness over olecranon process, no overlying edema or erythema, no calor to joint, No Edema. negative: Eccymosis Notes: Right elbow tenderness increases with full extension of the joint - NEURO Level of Consciousness: Awake, Alert, Appropriate Motor/Sensory: No Motor Deficit - DERM Integumentary: Warm, Dry, No Rash Course - Re-evaluation Re-evalutation: 03/01/20 11:14 Patient without any obvious fracture, will refer to orthopedics for further evaluation at this time. No evidence for any obvious bursitis, no concern for any septic arthritis. - Vital Signs Vital signs: Temp Pulse Resp BP Pulse Ox 98.7 F 95 16 140/81 H 99 03/01/20 09:10 03/01/20 09:10 03/01/20 09:10 03/01/20 09:10 03/01/20 09:10 - Diagnostic Test Radiology reviewed: Image reviewed, Reports reviewed Procedures - Immobilization Right Elbow Pre-Proc Neuro Vasc Exam: Normal Immobilizer type: Kenji wrap Performed by: RN Post-Proc Neuro Vasc Exam: Normal Alignment checked and good: Yes Discharge - Discharge Clinical Impression: Right elbow pain Condition: Stable Disposition: HOME, SELF-CARE Instructions: Acetaminophen, Kenji Wrap ([facility]) Additional Instructions: Return immediately for any new or worsening symptoms Followup with your primary care provider, call tomorrow to make a followup appointment Follow-up with orthopedics for further evaluation, call today to make a follow- up appointment Prescriptions: Lidocaine [Lidoderm 5% (700 mg) Transdermal Patch] 1 patch TP DAILY PRN #10 adh..patch PRN Reason: Naproxen [Naprosyn 250 Nmg Tablet] 1 tab PO BID #14 tablet Referrals: [facility] [Provider Group] - Follow up tomorrow
[2020-03-01 11:21] VITALS: BP 146/90
== END 2020-03-01 11:20 | disposition home or self-care (01) ==
LOC: ER 09:06
DX: S59.901A Unspecified injury of right elbow, initial encounter (principal); M25.521 Pain in right elbow; M79.601 Pain in right arm; W19.XXXA Unspecified fall, initial encounter; J45.909 Unspecified asthma, uncomplicated
CPT/HCPCS: 99283

== ENCOUNTER 2020-04-02 19:40 | Emergency (ER) | payer MEDICAID ==
[2020-04-02 20:00] VITALS: BP 141/90
[2020-04-02] MEDS ORDERED: BUTALB/ACETAMINOPHEN/CAFFEINE 1 TAB EACH PO ONE (20:59)
--- NOTE | 2020-04-02 21:03 | ER Document Report ---
HPI - HPI Time Seen by Provider: 04/02/20 20:53 Context: Patient is a 34-year-old female presents emergency department with a chief complaint of a migraine headache. Patient states this feels like her normal migraine headaches. Her headache is at her forehead area. Denies any nausea or vomiting. Her migraine started at 1300 today. She tried taking Excedrin, but did not have any relief of her pain. Denies any loss of function. Denies any numbness or tingling. - ROS Systems Reviewed and Negative: Yes All other systems reviewed and negative - CONSTITUTIONAL Constitutional: DENIES: Fever, Chills - EENT EENT: DENIES: Sore Throat, Ear Pain, Nasal Drainage-Clear, Nasal Drainage- Purulent, Congestion, Eye problems - NEURO Neurology: REPORTS: Headache. DENIES: Weakness, Vision blurred, Dizzinesss / Vertigo - CARDIOVASCULAR Cardiovascular: DENIES: Chest pain - RESPIRATORY Respiratory: DENIES: Trouble Breathing, Coughing - GASTROINTESTINAL Gastrointestinal: DENIES: Abdominal Pain, Nausea, Patient vomiting - URINARY Urinary: DENIES: Dysuria - REPRODUCTIVE Reproductive: DENIES: : - MUSCULOSKELETAL Musculoskeletal: DENIES: Extremity pain, Neck Pain - DERM Skin Color: Normal Skin Problems: None Past Medical History - General Information source: Patient - Social History Smoking Status: Unknown if Ever Smoked Family History: Arthritis, DM, Hyperlipidemia, Hypertension, Malignancy, Other - Asthma, atrial fibrillation, tobacco use, cervical cancer - Past Medical History Cardiac Medical History: Denies: Hx Pulmonary Embolism Pulmonary Medical History: Reports: Hx Asthma Denies: Hx Sleep Apnea, Hx Tuberculosis Neurological Medical History: Reports: Hx Migraine Endocrine Medical History: Denies: Hx Hyperthyroidism, Hx Hypothyroidism Renal/ Medical History: Denies: Hx Kidney Stones, Hx Peritoneal Dialysis GI Medical History: Reports: Hx Gastroesophageal Reflux Disease. Denies: Hx Hiatal Hernia, Hx Ulcer Past Surgical History: Reports: Hx Section - 4, Hx Cholecystectomy - Immunizations Hx Diphtheria, Pertussis, Tetanus Vaccination: Yes Vertical Provider Document - CONSTITUTIONAL Agree With Documented VS: Yes Exam Limitations: No Limitations General Appearance: No Apparent Distress - INFECTION CONTROL TRAVEL OUTSIDE OF THE [place] IN LAST 30 DAYS: No - HEENT HEENT: Atraumatic, Normocephalic, PERRLA - NECK Neck: Normal Inspection - RESPIRATORY Respiratory: Breath Sounds Normal, No Respiratory Distress - CARDIOVASCULAR Cardiovascular: Regular Rate, Regular Rhythm Pulses: Normal: Radial - GI/ABDOMEN Gastrointestinal: Abdomen Soft, Abdomen Non-Tender - MUSCULOSKELETAL/EXTREMETIES Musculoskeletal/Extremeties: FROM - NEURO Level of Consciousness: Awake, Alert, Appropriate Motor/Sensory: No Motor Deficit, No Sensory Deficit - DERM Integumentary: Warm, Dry, No Rash Course - Re-evaluation Re-evalutation: 04/02/20 Patient brought her small child to the emergency department. Unfortunately, due to the coronavirus, the patient cannot be seen in a room in the back because she has a small child with her. At this time, we will send her home from triage with Fioricet to go home with so she can take at home. Patient will be sent home with a prescription for Fioricet. No neurological deficits noted. I have a low suspicion for any intracranial etiology at this time. Normal strength in all extremities. Follow-up precautions were given. Verbal discharge instructions were given to the patient. They verbalized understanding. They are stable for discharge. - Vital Signs Vital signs: Temp Pulse Resp BP Pulse Ox 98.1 F 93 18 141/90 H 97 04/02/20 19:55 04/02/20 19:55 04/02/20 19:55 04/02/20 19:55 04/02/20 19:55 Discharge - Discharge Clinical Impression: Migraine headache Qualifiers: Migraine type: unspecified Status migrainosus presence: without status migrainosus Intractability: not intractable Qualified Code(s): G43.909 - Migraine, unspecified, not intractable, without status migrainosus Condition: Stable Disposition: HOME, SELF-CARE Additional Instructions: You were seen today for a migraine headache. Please follow-up with your primary care doctor regarding today's ED visit. Return to emergency department imm ediately if you develop a headache that gets to its maximum severity within 20 minutes of onset, you pass out, you develop weakness, numbness, changes in your vision, become unable to keep any fluids down for more than 12 hours, or develop a fever greater than 100.4 degrees Fahrenheit. If you develop a similar migraine headache in the future I recommend that you immediately take 600 mg of ibuprofen and 50 mg of Benadryl and go to sleep as quickly as possible. This can often prevent your migraine headache from becoming severe. You can also take Fioricet as needed for your migraine. Prescriptions: Butalb/Acetaminophen/Caffeine [Fioricet (50-325-40 mg) Tablet] 1 tab PO Q4H #10 tab
== END 2020-04-02 21:05 | disposition home or self-care (01) ==
LOC: ER 19:40
DX: G43.909 Migraine, unspecified, not intractable, without status migrainosus (principal)
CPT/HCPCS: 99284; J3490